=== PATIENT | male | born 1940 | race Caucasian/White ===

== ENCOUNTER 2020-10-31 10:15 | Outpatient (CLI) | payer MEDICARE, SELFPAY ==
[2020-10-31 10:59] LABS: Basophils Percent Auto 0.3 % (0.2-1.2); Eosinophils Absolute Auto 0.2 K/mm3 (0-0.3); Eosinophils Percent Auto 2.1 % (0-4.4); Hematocrit 45.3 % (42.0-52.0); Hemoglobin 14.6 g/dL (14.0-18.0); Immature Granulocyte Absolute 0.02 K/mm3 (0.00-0.031); Immature Granulocyte Percent A 0.3 % (0-0.5); Lymphocytes Absolute Auto 1.26 K/mm3 (0.9-3.2); Lymphocytes Percent Auto 17.4 % (18.3-44.2); Mean Corpuscular HGB Conc 32.2 g/dl (32-36); Mean Corpuscular Hemoglobin 31.7 pg (26-34); Mean Corpuscular Volume 98.3 fl (80-100); Mean Platelet Volume 10.2 fl (7.4-10.4); Monocytes Absolute Auto 0.7 K/mm3 (0.1-0.6); Monocytes Percent Auto 10.2 % (2.6-8.5); Neutrophils Percent Auto 69.7 % (45.5-73.1); Platelet Count Result 198 k/mm3 (150-375); Red Blood Count 4.61 M/mm3 (4.6-6.20); Red Cell Distribution Width 13.5 % (11.5-14.5); White Blood Count 7.2 K/mm3 (4.5-10.0)
[2020-10-31 11:12] LABS: Anion Gap 5 mmol/L (8-16); Blood Urea Nitrogen 19 mg/dL (9-20); Calcium 9.4 mg/dL (8.4-10.2); Carbon Dioxide 33 mmol/L (22-30); Chloride 102 mmol/L (98-107); Estimated Glomerular Filt Rate > 60; Glucose 99 mg/dL (75-110); Potassium 4.7 mmol/L (3.4-5.0); Sodium 140 mmol/L (137-145)
== END 2020-10-31 10:16 | disposition home or self-care (01) ==
PROVIDERS: PCP Family Medicine
DX: E66.9 Obesity, unspecified (principal); E78.5 Hyperlipidemia, unspecified; I10 Essential (primary) hypertension; I25.10 Atherosclerotic heart disease of native coronary artery without angina pectoris; R94.39 Abnormal result of other cardiovascular function study
CPT/HCPCS: 36415; 80048; 85025

== ENCOUNTER → 2020-11-03 06:34 | Outpatient (CLI) | payer MEDICARE, SELFPAY ==
[2020-11-03 19:19] LABS: SARS-CoV-2 RNA PCR Negative
== END ==
PROVIDERS: PCP Family Medicine; Visit Provider Family Medicine
DX: R68.89 Other general symptoms and signs (principal); Z20.822 Contact with and (suspected) exposure to COVID-19
CPT/HCPCS: C9803; U0003; U0005

== ENCOUNTER 2021-05-12 08:09 | Outpatient (CLI) | payer MEDICARE, SELFPAY ==
[2021-05-12 08:45] LABS: Alanine Aminotransferase 22 U/L (4-50); Albumin Level 4.4 g/dL (3.5-5.1); Alkaline Phosphatase 59 U/L (38-126); Anion Gap 7 mmol/L (8-16); Aspartate Amino Transferase 27 U/L (17-59); Bilirubin,Total 1.2 mg/dL (0.2-1.3); Blood Urea Nitrogen 22 mg/dL (9-20); Calcium 8.9 mg/dL (8.4-10.2); Carbon Dioxide 29 mmol/L (22-30); Chloride 101 mmol/L (98-107); Cholesterol 133 mg/dL (0-200); Estimated Glomerular Filt Rate > 60; Glucose 119 mg/dL (65-110); HDL Direct 52 mg/dL; Potassium 4.5 mmol/L (3.4-5.0); Sodium 137 mmol/L (137-145); Triglycerides 97 mg/dL (<150)
[2021-05-12 08:55] LABS: Hemoglobin A1C 5.7 % (<5.7)
[2021-05-12 08:57] LABS: LDL Cholesterol Direct 60 mg/dL
== END 2021-05-12 08:10 | disposition home or self-care (01) ==
LOC: ANHLAB 08:13
PROVIDERS: PCP Family Medicine; Visit Provider Family Medicine
DX: R73.01 Impaired fasting glucose (principal); I11.9 Hypertensive heart disease without heart failure; E78.5 Hyperlipidemia, unspecified
CPT/HCPCS: 36415; 80053; 80061; 83036

== ENCOUNTER 2021-06-18 11:34 | Outpatient (CLI) | payer MEDICARE, SELFPAY ==
[2021-06-18 12:13] LABS: Add Urine Microscopic? YES; Appearance Urine Clear (Clear); Bilirubin Urine Negative (Negative); Blood Urine Negative (Negative); Color Urine Yellow (Yellow); Glucose Urine UA Negative (Negative); Ketones Urine Negative (Negative); Leukocyte Esterase Ur Negative LEU/UL (Negative); Mucus Urine Rare /lpf; Nitrate Urine Negative (Negative); Protein Urine Negative (Negative); RBC Urine 0-2 /hpf (0-2); Specific Grav Ur 1.023 (1.001-1.035); Squamous Epithelial Cell Urine Few /hpf (Few); Urobilinogen Urine Negative mg/dL (<2.0)
== END 2021-06-18 11:35 | disposition home or self-care (01) ==
PROVIDERS: PCP Family Medicine; Visit Provider Family Medicine
DX: N39.0 Urinary tract infection, site not specified (principal)
CPT/HCPCS: 81001

== ENCOUNTER 2021-06-22 09:54 | Outpatient (CLI) | payer MEDICARE, SELFPAY ==
--- NOTE | ~2021-06-22 | XR_ITS ---
EXAMINATION: XR lumbar spine 2-3V DATE: 06/22/2021 10:14 INDICATION: Low back pain TECHNIQUE: Anteroposterior and lateral views of the lumbar spine, and cone-down lateral view of the l umbosacral junction were obtained. COMPARISON: 09/10/2015 FINDINGS: There is unchanged severe loss of intervertebral disc space height at L5-S1. There is mild loss of intervertebral disc space height throughout the remainder of the lumbar spine. No fracture is identified. Bone alignment is normal. The vertebral body heights are maintained. There is calcified atherosclerosis of the aorta and many of the other arteries. The bowel gas pattern is normal. IMPRESSION: 1. Severe lower lumbar spondylosis without acute findings or significant interval change. Reviewed, dictated and finalized at location F. INSTALLER IMPRESSION: 1. Severe lower lumbar spondylosis without acute findings or significant interv al change.
== END 2021-06-22 09:55 | disposition home or self-care (01) ==
LOC: ANHIMG 09:58
PROVIDERS: PCP Family Medicine; Visit Provider Family Medicine
DX: M47.896 Other spondylosis, lumbar region (principal)
CPT/HCPCS: 72100

== ENCOUNTER 2021-06-24 10:02 | Emergency (ER) | payer MEDICARE, SELFPAY ==
[2021-06-24 10:16] VITALS: BP 147/66; PULSE 79; RESP 16; TEMP 36.5; O2SAT 98
--- NOTE | 2021-06-24 10:29 | ED.URI ---
HPI - URI/Sore Throat General Chief Complaint: Upper Respiratory Infection Stated Complaint: RUNNY NOSE/COUGH Source: patient and RN notes reviewed Limitations: no limitations History of Present Illness HPI Narrative: The vaccinated patient, a remote ex-smoker/nondrinker, presents with a nearly 2-week long history of scantly productive cough and congestion. Symptoms are mild, persistent unrelieved with steroid and Flonase given earlier. No fever, wheeze, sore throat; no loss of taste/smell, calf pain/edema, CP, S OB. His last chest x-ray was noncontributory s/p CABG [in 2019]; she had a prior chest ultrasound showing no aneurysm [2018] Related Data Home Medications Medication Instructions Recorded Confirmed aspirin 81 mg tablet,delayed 81 mg PO DAILY 06/08/19 06/09/21 release losartan 100 mg tablet 100 mg PO DAILY 06/08/19 06/09/21 nadolol 20 mg tablet 20 mg PO DAILY 06/08/19 06/09/21 simvastatin 40 mg tablet 40 mg PO DAILY 06/08/19 06/09/21 Allergies Allergy/AdvReac Type Severity Reaction Status Date / Time Penicillins Allergy Mild Rash Verified 06/09/21 08:18 Review of Systems Review of Systems: General/Constitutional: No weight loss,fever Eyes: N0: Redness,discharge Ears/Nose/Throat: No: Epistaxis,ear discharge Respiratory: Denies: Hemoptysis Gastrointestinal: No Vomiting, Bleeding-rectal Skin: No Lumps, eruption Neurologic: No Focal Weakness,Sz Hematologic: Denies: Petechiae/Purpura Psychiatric: No: Suicida ideationl All Other Systems: Reviewed and Negative [facility] Past Medical History Medical History CAD (coronary artery disease) HLD (hyperlipidemia) Hypertension with heart disease IFG (impaired fasting glucose) Surgical History Surgical History S/P CABG (coronary artery bypass graft) Status post arthroscopy of right knee Status post left foot surgery Status post left knee replacement Family History Family History Father Lung cancer Mother AAA (abdominal aortic aneurysm) Father Family history of lung cancer Social History Social History (Reviewed 06/09/21 @ 08:18 by Shanthi Rene Smoking packs per day: 3 Smoking cigarettes per day: 60.0 Years smoked: 25 Smoking pack-years: 75.00 Smoking status: Former smoker Tobacco type: cigarettes Second hand tobacco smoke exposure: No Smoking end date: 06/27/86 Alcohol intake: never Alcohol use details: occasional Substance use: never Substance use type: does not use Gender identity (if verbalized by the patient): Male Comments At time of signature, agree with nursing past medical, surgical, social and family history. There is no relevant family history pertinent to the presenting complaint Exam Narrative: General Appearance: Well appearing, Well nourished EYE: PERRLA, Conjunctiva clear Ears: Auditory canal normal, TM normal Nose: Rhinorrhea, Mucousal erythema Mouth/Throat: MM moist, Uvula midline, Pharyngeal erythema ( Neck: Supple, No adenopathy Respiratory: No respiratory distress, increased AP diameter, mild decreased BS symmetrically especially bases Cardiovascular: RRR, No JVD Musculoskeletal: Non tender, Normal strength Skin: Warm, Dry Neurological: A&O x3, CN II-XII intact Psychiatric: Normal mood, Normal affect Course Vital Signs Vital signs: Vital Signs Temperature 97.7 F 06/24/21 10:16 Pulse Rate 79 06/24/21 10:16 Respiratory Rate 16 06/24/21 10:16 Blood Pressure 147/66 H 06/24/21 10:16 Pulse Oximetry 98 06/24/21 10:16 Temperature 97.7 F 06/24/21 10:16 Pulse Rate 79 06/24/21 10:16 Respiratory Rate 16 06/24/21 10:16 Blood Pressure 147/66 H 06/24/21 10:16 Pulse Oximetry 98 06/24/21 10:16 Discharge Plan Discharge Clinical Impression: Bronchitis Patient Disposition:
[2021-06-25 12:27] LABS: SARS-CoV-2 RNA PCR Positive
== END 2021-06-24 10:42 | disposition home or self-care (01) ==
PROVIDERS: Emergency Provider Emergency Medicine; PCP Family Medicine
DX: U07.1 COVID-19 (principal); I25.10 Atherosclerotic heart disease of native coronary artery without angina pectoris; E78.5 Hyperlipidemia, unspecified; Z95.1 Presence of aortocoronary bypass graft; Z96.652 Presence of left artificial knee joint; Z87.891 Personal history of nicotine dependence
CPT/HCPCS: 99213; C9803; G0463; U0003; U0005

== ENCOUNTER 2021-07-13 09:44 | Outpatient (CLI) | payer MEDICARE, SELFPAY ==
--- NOTE | ~2021-07-13 | XR_ITS ---
EXAMINATION: XR chest 2V EXAM DATE: 07/13/2021 09:59 INDICATION: R05.9 - Cough, unspecified, H/O triple bypass. TECHNIQUE: Frontal and lateral projections of the chest obtained and reviewed. Comparison is made to prior examination from 09/05/2018. FINDINGS: Sternotomy wires are present without findings to suggest sternal dehiscence. The lungs are clear. There are no pleural effusions. Cardiac silhouette is prominent but magnified on this AP te chnique. There is no pneumothorax suspected. Patient has diffuse idiopathic skeletal hyperostosis (DISH). There is no significant interval change. IMPRESSION: No acute cardiopulmonary findings. Reviewed, dictated and finalized at location G. HOIST OPERATOR
== END 2021-07-13 09:45 | disposition home or self-care (01) ==
LOC: ANHIMG 09:46
PROVIDERS: PCP Family Medicine; Visit Provider Nurse Practitioner Family
DX: R05.9 Cough, unspecified (principal)
CPT/HCPCS: 71046

== ENCOUNTER 2021-11-12 10:21 | Outpatient (CLI) | payer MEDICARE, SELFPAY ==
[2021-11-12 10:51] LABS: Hematocrit 45.2 % (42.0-52.0); Hemoglobin 14.4 g/dL (14.0-18.0); Mean Corpuscular HGB Conc 31.9 g/dl (32-36); Mean Corpuscular Hemoglobin 31.8 pg (26-34); Mean Corpuscular Volume 99.8 fl (80-100); Mean Platelet Volume 9.8 fl (7.4-10.4); Platelet Count Result 195 k/mm3 (150-375); Red Blood Count 4.53 M/mm3 (4.6-6.20); Red Cell Distribution Width 13.5 % (11.5-14.5); White Blood Count 6.8 K/mm3 (4.5-10.0)
[2021-11-12 10:55] LABS: Appearance Urine Clear (Clear); Bilirubin Urine Negative (Negative); Blood Urine Negative (Negative); Color Urine Yellow (Yellow); Glucose Urine UA Negative (Negative); Ketones Urine Negative (Negative); Leukocyte Esterase Ur Trace LEU/UL (NEGATIVE); Nitrate Urine Negative (Negative); Protein Urine 1+ mg/dL (Negative); Specific Grav Ur 1.025 (1.001-1.035); Urobilinogen Urine 0.2 mg/dL (<2.0)
[2021-11-12 11:01] LABS: Add Urine Microscopic? YES
[2021-11-12 11:02] LABS: RBC Urine 0-2 /hpf (0-2)
[2021-11-12 11:03] LABS: WBC Urine 0-3 /hpf (0-3)
[2021-11-12 11:18] LABS: Alanine Aminotransferase 17 U/L (6-50); Albumin Level 4.4 g/dL (3.5-5.1); Alkaline Phosphatase 80 U/L (38-126); Anion Gap 6 mmol/L (8-16); Aspartate Amino Transferase 26 U/L (17-59); Bilirubin,Total 1.4 mg/dL (0.2-1.3); Blood Urea Nitrogen 20 mg/dL (9-20); Calcium 8.8 mg/dL (8.4-10.2); Carbon Dioxide 28 mmol/L (22-30); Chloride 104 mmol/L (98-107); Cholesterol 128 mg/dL (0-200); Estimated Glomerular Filt Rate 58; Glucose 104 mg/dL (65-110); HDL Direct 45 mg/dL; Potassium 5.3 mmol/L (3.4-5.0); Sodium 138 mmol/L (137-145); Triglycerides 92 mg/dL (<150)
[2021-11-12 11:20] LABS: LDL Cholesterol Direct 53 mg/dL
[2021-11-12 11:26] LABS: Hemoglobin A1C 5.7 % (<5.7)
== END 2021-11-12 10:22 | disposition home or self-care (01) ==
PROVIDERS: PCP Family Medicine; Visit Provider Family Medicine
DX: E11.9 Type 2 diabetes mellitus without complications (principal); E78.5 Hyperlipidemia, unspecified; Z00.00 Encounter for general adult medical examination without abnormal findings
CPT/HCPCS: 36415; 80053; 80061; 81001; 83036; 84443; 85027

== ENCOUNTER 2021-12-14 10:27 | Outpatient (CLI) | payer MEDICARE, SELFPAY ==
[2021-12-14 11:24] LABS: Alanine Aminotransferase 20 U/L (6-50); Albumin Level 4.7 g/dL (3.5-5.1); Alkaline Phosphatase 76 U/L (38-126); Anion Gap 3 mmol/L (8-16); Aspartate Amino Transferase 28 U/L (17-59); Bilirubin,Total 1.9 mg/dL (0.2-1.3); Blood Urea Nitrogen 22 mg/dL (9-20); Calcium 8.7 mg/dL (8.4-10.2); Carbon Dioxide 29 mmol/L (22-30); Chloride 103 mmol/L (98-107); Estimated Glomerular Filt Rate > 60; Glucose 114 mg/dL (65-110); Sodium 135 mmol/L (137-145)
== END 2021-12-14 10:28 | disposition home or self-care (01) ==
LOC: ANHLAB 10:30
PROVIDERS: PCP Family Medicine; Visit Provider Family Medicine
DX: E87.5 Hyperkalemia (principal)
CPT/HCPCS: 36415; 80053

== ENCOUNTER 2022-06-01 10:09 | Outpatient (CLI) | payer MEDICARE, SELFPAY ==
[2022-06-01 17:12] LABS: Alanine Aminotransferase 23 U/L (6-50); Albumin Level 4.2 g/dL (3.5-5.1); Alkaline Phosphatase 80 U/L (38-126); Anion Gap 6 mmol/L (8-16); Bilirubin,Total 1.3 mg/dL (0.2-1.3); Blood Urea Nitrogen 21 mg/dL (9-20); Calcium 8.4 mg/dL (8.4-10.2); Carbon Dioxide 30 mmol/L (22-30); Chloride 105 mmol/L (98-107); Estimated Glomerular Filt Rate > 60; Glucose 103 mg/dL (65-110); Potassium 4.8 mmol/L (3.4-5.0); Sodium 141 mmol/L (137-145)
[2022-06-01 17:42] LABS: Aspartate Amino Transferase 27 U/L (17-59)
== END 2022-06-01 10:10 | disposition home or self-care (01) ==
PROVIDERS: Physician Assistant; PCP Family Medicine; Visit Provider Family Medicine
DX: R73.01 Impaired fasting glucose (principal); I11.9 Hypertensive heart disease without heart failure
CPT/HCPCS: 36415; 80053; 83036

== ENCOUNTER 2022-06-16 09:06 | Outpatient (CLI) | payer MEDICARE, SELFPAY ==
--- NOTE | ~2022-06-16 | XR_ITS ---
AP view of the pelvis and AP and lateral views of the left hip Clinical history: Pain Findings: No acute fracture or dislocation is seen. Osseous alignment is anatomic. Bilateral hip and SI joint spaces are preserved. Soft tissues are unremarkable. Impression: No significant abnormality is seen. Reviewed, dictated and finalized at [facility]. ATTENDANT Impression: No significant abnormality is seen.
== END 2022-06-16 09:07 | disposition home or self-care (01) ==
PROVIDERS: PCP Family Medicine; Visit Provider Physician Assistant
DX: M25.552 Pain in left hip (principal)
CPT/HCPCS: 73502

== ENCOUNTER 2022-08-23 09:47 | Outpatient (CLI) | payer MEDICARE, SELFPAY ==
--- NOTE | 2022-08-23 09:56 | ECG_ITS ---
Measurements Intervals [place] Rate: 69 P: 45 FL: 192 QRS: -51 QRSD: 124 T: 31 QT: 428 QTc: 459 Interpretive Statements SINUS RHYTHM LEFT AXIS DEVIATION ANTEROSEPTAL MYOCARDIAL INFARCTION, OF INDETERMINATE AGE ABNORMAL ECG NO PREVIOUS ECG AVAILABLE FOR COMPARISON Electronically Signed On 08-23-2022 14:37:01 MICROCOMPUTER SUPPORT SPECIALIST by Ulises Russell M.D.
== END 2022-08-23 09:48 | disposition home or self-care (01) ==
PROVIDERS: PCP Family Medicine; Visit Provider Urology
DX: Z01.810 Encounter for preprocedural cardiovascular examination (principal); I11.9 Hypertensive heart disease without heart failure; I25.2 Old myocardial infarction; R94.31 Abnormal electrocardiogram [ECG] [EKG]
CPT/HCPCS: 93005

== ENCOUNTER 2022-08-26 00:25 | Day surgery (SDC) | payer MEDICARE, SELFPAY ==
--- NOTE | 2022-08-20 15:08 | PC.NURSE ---
Report to the Outpatient Waiting Room, entrance under the green pavilion located off [facility], at time __0830 on date _08/26/22 . Planned Procedure Time: ____1030____. Time changes happen often and if your time is changed the preop area will call you the afternoon before. - You and your visitor will be asked to self-screen and do not enter if you have any COVID symptoms. - Only one visitor is requested with a max of two and NO children visitors are allowed at this time. - The patient visitor may be requested to leave or wait in car when not with patient due to distancing restrictions. - A mask is optional within the hospital at this time. Patients may have clear liquids (water, carbonated beverages, clear teas, apple juice) until 3 hours prior to surgery with a maximum of 20 ounces. - No food from midnight until time of surgery - Infants may have breast milk until 4 hours before surgery, formula 6 hours prior to surgery. - Children will be allowed to drink immediately following surgery. If applicable, please bring a bottle or sippy cup to assist with drinking. Juice, water, soda, and popsicles are readily available. For infants on formula, please bring formula the day of surgery. Pacifiers are allowed. Take the following medications with a SIP of water the morning of surgery: ____NADOLOL DO NOT STOP ANY OF YOUR OTHER PRESCRIPTION MEDICATIONS PRIOR TO SURGERY ?EXCEPT THE FOLLOWING Medications to discontinue per physician __PT STATES HOLD ASPIRIN PER DR BALDERAS. LAST DOSE 08/19/22 Please no make-up, nail slovak, hairspray, perfume, deodorant, or body powder the day of surgery. No jewelry (including any body piercings) or valuables the day of surgery, leave them at home. Please take a shower or bath the night before, or the morning of, surgery with an antibacterial soap. Wear comfortable, loose fitting clothing. Children are encouraged to wear pajamas. - Jewelry must be removed prior to entering the operating room. Rings and piercings that are not removed may be cut off. - The hospital will not accept responsibility for valuables. - Please leave all valuables, including medications, at home the day of surgery. If you are going home after surgery, a licensed guard driver must drive you home. - NO public transportation without another adult if you receive anesthesia. - We recommend that an adult stay with you for 24 hours following discharge. - We also recommend that you do not drive, make important decision, drink alcoholic beverages, or take any drugs that were not prescribed by your health care provider for at least 24 hours after your discharge time. Follow any additional instructions given to you from your surgeon. If you or anyone in your household have experienced Covid symptoms in the past week, please notify your surgeon or the nurse liaison at the phone number below for possible testing. Telephone instructions given to ___PATIENT and asked if any additional questions and then verbalized understanding. Patient advised to call surgeon office or pre surgery nurse liaison [phone] if any additional questions.
[2022-08-20 15:25] VITALS: BMI 33.0
--- NOTE | 2022-08-23 07:26 | PM.HPGS ---
History of Present Illness History of Present Illness Consent: Risks, benefits, and alternatives have been discussed and questions answered. Patient agrees to proceed with procedure. Chief complaint: phimosis Narrative: Gentry Lennon Jr. is a 82 year old male who recently presented with dysuria. Examination revealed severe some phimosis and his dysuria appears to be related to that. After discussion of options he has elected to proceed with circumcision. He is aware the risk including, but not limited to, postoperative penile hematoma. Review of Systems Cardiovascular: Cardiovascular: Denies chest pain, Denies lightheadedness, Denies palpitations and Denies dyspnea Respiratory: Respiratory: Denies dyspnea Gastrointestinal: Gastrointestinal: Denies diarrhea, Denies nausea and Denies vomiting Genitourinary: Genitourinary: Denies hematuria and Denies dysuria Endocrine: Endocrine: Denies palpitations [facility] Past Medical History Medical History (Updated 07/02/22 @ 09:25 by Sherice Hernandez PA-C) CAD (coronary artery disease) History of COVID-19 HLD (hyperlipidemia) Hypertension with heart disease IFG (impaired fasting glucose) Surgical History Surgical History S/P CABG (coronary artery bypass graft) Status post arthroscopy of right knee Status post left foot surgery Status post left knee replacement Family History Family History Father Lung cancer Mother AAA (abdominal aortic aneurysm) Father Family history of lung cancer Social History Social History Smoking packs per day: 3 Smoking cigarettes per day: 60.0 Years smoked: 25 Smoking pack-years: 75.00 Smoking status: Former smoker Tobacco type: cigarettes Second hand tobacco smoke exposure: No Smoking end date: 06/27/86 Alcohol intake: never Alcohol use details: occasional Substance use: never Substance use type: does not use Living arrangements: with family Occupation/Education: retired Gender identity (if verbalized by the patient): Male Spiritual care concerns: No Meds Home Medications and Allergies Home Medications Medication Instructions Recorded Confirmed Type aspirin 81 mg tablet,delayed 81 mg PO DAILY 06/08/19 08/20/22 History release losartan 100 mg tablet 100 mg PO DAILY 06/08/19 08/20/22 History nadolol 20 mg tablet 20 mg PO DAILY 06/08/19 08/20/22 History simvastatin 40 mg tablet (Zocor) 40 mg PO DAILY 06/08/19 08/20/22 History Allergies Allergy/AdvReac Type Severity Reaction Status Date / Time Penicillins Allergy Mild Rash Verified 08/20/22 14:59 Exam Const: General: no acute distress Resp: Effort & Inspection: normal respiratory effort GI: Inspection: non-distended GI Palp: No abdominal tenderness and No Guarding due to palpation present (GI) Auscultation: normal bowel sounds : Penis: Yes phimosis Assessment and Plan Assessment and plan (1) Phimosis of penis: Code(s): N47.1 - Phimosis Status: Acute Assessment and Plan: Circumcision
[2022-08-26] VITALS (8 sets, daily range): BP systolic 151–187; BP diastolic 53–84; PULSE 59–67; RESP 12–20; TEMP 36.1; O2SAT 97–100
--- NOTE | 2022-08-26 06:43 | WPDHPUPDATE1 ---
History and Physical Update Update Date/Time: 08/26/22 06:43 History and Physical has been reviewed, including an updated exam of the patient. There are NO changes in the patient's condition. Risks, benefits, and alternatives have been discussed and questions answered. Patient agrees to proceed with procedure.
[2022-08-26] MEDS: LACTATED RINGERS 1,000 ML 30 ML IV CONT (08:55)
--- NOTE | 2022-08-26 09:41 | WPDANESEPPF ---
Anes - Initial Pre Proc Eval Procedure: Operation Date: 08/26/22 10:30 Proposed Procedures p Circumcision - Sinan Rush MD Date/Time: 08/26/22 09:41 Surgeon: Sinan Rush MD Pre Op Diagnosis: phimosis Patient Data Age: 82 Gender: M Height: 1.85 m Weight: 111.7 kg Last Vital Signs Temp 96.9 F L 08/26/22 08:30 Pulse 65 08/26/22 08:30 Resp 20 08/26/22 08:30 BP 160/81 H 08/26/22 08:30 Pulse Ox 98 08/26/22 08:30 O2 Del Method Room Air 08/26/22 08:30 Allergies Allergy/AdvReac Type Severity Reaction Status Date / Time Penicillins Allergy Mild Rash Verified 08/26/22 08:48 Home Medications Medication Instructions Recorded Confirmed Type aspirin 81 mg tablet,delayed 81 mg PO DAILY 06/08/19 08/26/22 History release losartan 100 mg tablet 100 mg PO DAILY 06/08/19 08/26/22 History nadolol 20 mg tablet 20 mg PO DAILY 06/08/19 08/26/22 History simvastatin 40 mg tablet (Zocor) 40 mg PO DAILY 06/08/19 08/26/22 History Patient hx anesthesia problems: none Family hx anesthesia problems: none Results Review: All pre-operative results and documents have been reviewed as part of the pre-operative evaluation. [facility] Past Medical History Medical History (Updated 07/02/22 @ 09:25 by Sherice Hernandez PA-C) CAD (coronary artery disease) History of COVID-19 HLD (hyperlipidemia) Hypertension with heart disease IFG (impaired fasting glucose) Surgical History Surgical History S/P CABG (coronary artery bypass graft) Status post arthroscopy of right knee Status post left foot surgery Status post left knee replacement Family History Family History Father Lung cancer Mother AAA (abdominal aortic aneurysm) Father Family history of lung cancer Social History Social History Smoking packs per day: 3 Smoking cigarettes per day: 60.0 Years smoked: 25 Smoking pack-years: 75.00 Smoking status: Former smoker Tobacco type: cigarettes Second hand tobacco smoke exposure: No Smoking end date: 06/27/86 Alcohol intake: never Alcohol use details: occasional Substance use: never Substance use type: does not use Living arrangements: with family Occupation/Education: retired Gender identity (if verbalized by the patient): Male Spiritual care concerns: No Anes - Eval Final PreProcedure Day of Procedure 08/26/22 09:41 Patient weight: obese Heart: regular rate and rhythm Lungs: clear to auscultation Airway: Mallampati scale class II Neurological: alert and oriented Last oral intake: >/= 8 hours ASA classification: III Emergent: no Anesthetic plan: proceed Anesthesia type and monitoring: general LMA and standard monitoring Results Review: All pre-operative results and documents have been reviewed as part of the pre-operative evaluation. Informed Consent: The patient's anesthetic plan and its attendant risks and benefits were discussed with the patient/family/POA. Questions were solicited and answers provided to the satisfaction of the patient/family/POA.
[2022-08-26] MEDS: ceFAZolin 2 GM/D5W 50 ML 2 GM/50 ML BAG IVPB (10:11)
[2022-08-26] MEDS: BUPivacaine HCL 0.5% PF 30 ML VIAL INFILTRATE (10:29)
--- NOTE | 2022-08-26 10:55 | W.PM.PROC2 ---
Procedure Note - Detailed Date of Procedure 08/26/22 Pre-op Diagnosis Phimosis Post-op Diagnosis Same Procedure Performed Circumcision Surgeon Sinan Rush MD Anesthesia General Description of Procedure The patient is brought to the operative suite areas prepped and draped in a routine sterile fashion while in a supine position. The lines of circumcision are outlined using a sterile marking pen. 2 circumferential circumcising incisions were made and carried down to Colle's fascia. The penile foreskin is circumferentially excised. Hemostasis is obtained with electric cautery. The edges of the penile skin reapproximated using a combination of running and interrupted 4-0 chromic. A penile block is administered at the base of the penis with 0.25% bupivacaine. The patient was taken to the recovery room in good condition. EBL was approximately 10cc. Estimated Blood Loss 10 Drains No Packing No Pathology Yes
--- NOTE | 2022-08-26 11:25 | SUR.PHASEI ---
1125: Simple mask removed.
== END 2022-08-26 12:43 | disposition home or self-care (01) ==
PROVIDERS: PCP Family Medicine; Visit Provider Urology
PROC: (CPT 54161; principal; 2022-08-26 10:30)
DX: N47.1 Phimosis (principal); I11.9 Hypertensive heart disease without heart failure; E78.5 Hyperlipidemia, unspecified; I25.10 Atherosclerotic heart disease of native coronary artery without angina pectoris; Z79.82 Long term (current) use of aspirin; Z95.1 Presence of aortocoronary bypass graft; Z87.891 Personal history of nicotine dependence; E66.9 Obesity, unspecified; Z68.32 Body mass index [BMI] 32.0-32.9, adult
CPT/HCPCS: 54161; 88304; A9270; J0690; J1100; J2405; J2704; J3010; J7120

== ENCOUNTER 2022-10-05 14:39 | Emergency (ER) | payer MEDICARE, SELFPAY ==
--- NOTE | 2022-10-05 14:42 | ED.URI ---
HPI - URI/Sore Throat General Chief Complaint: Upper Respiratory Infection Stated Complaint: cough Time Seen by Provider: 10/05/22 15:09 Source: patient and RN notes reviewed Mode of arrival: ambulatory Limitations: no limitations History of Present Illness HPI Narrative: 82-year-old male presents concern for cough for 4 days sweats last night. He reports mild nasal congestion and rhinorrhea. He reports he has been taking cough medicine with not much relief. MD elicited complaint: cough Related Data Home Medications Medication Instructions Recorded Confirmed aspirin 81 mg tablet,delayed 81 mg PO DAILY 06/08/19 10/05/22 release nadolol 20 mg tablet 20 mg PO DAILY 06/08/19 10/05/22 simvastatin 40 mg tablet (Zocor) 40 mg PO DAILY 06/08/19 10/05/22 losartan 50 mg tablet 50 mg PO DAILY 10/05/22 10/05/22 Allergies Allergy/AdvReac Type Severity Reaction Status Date / Time Penicillins Allergy Mild Rash Verified 10/05/22 14:57 Review of Systems Review of Systems: CONSTITUTIONAL: Reports malaise, sweats. Denies chills or fever. EYES: Denies visual changes, redness, or discharge. ENT: Reports rhinorrhea, congestion. Denies sinus pain, otalgia and sore throat. CARDIOVASCULAR: Denies chest pain, palpitations, or edema. RESPIRATORY: Reports cough. Denies dyspnea. GASTROINTESTINAL: Denies abdominal pain, nausea, vomiting, diarrhea SKIN: Denies rash or itching. MUSCULOSKELETAL: Denies myalgia. NEUROLOGIC: Denies headache. All systems reviewed & are unremarkable except as noted in HPI and below PMFSH Past Medical History Medical History (Updated 10/05/22 @ 15:17 by Paige Donnelly NP) CAD (coronary artery disease) History of COVID-19 HLD (hyperlipidemia) Hypertension with heart disease IFG (impaired fasting glucose) Surgical History Surgical History S/P CABG (coronary artery bypass graft) Status post arthroscopy of right knee Status post left foot surgery Status post left knee replacement Family History Family History Father Lung cancer Mother AAA (abdominal aortic aneurysm) Father Family history of lung cancer Social History Social History (Reviewed 06/09/22 @ 08:32 by Ann Ying Smoking packs per day: 3 Smoking cigarettes per day: 60.0 Years smoked: 25 Smoking pack-years: 75.00 Smoking status: Former smoker Tobacco type: cigarettes Second hand tobacco smoke exposure: No Smoking end date: 06/27/86 Alcohol intake: never Alcohol use details: occasional Substance use: never Substance use type: does not use Living arrangements: with family Occupation/Education: retired Gender identity (if verbalized by the patient): Male Spiritual care concerns: No Comments At time of signature, agree with nursing past medical, surgical, social and family history. There is no relevant family history pertinent to the presenting complaint Exam Narrative: GENERAL: Well-appearing, well-nourished, and in no acute distress. HEAD: Normocephalic EYES: PERRLA, conjunctivae clear ENT: Nares clear, turbinates edematous and erythematous, clear discharge. Mucous membranes moist. TM pearly nichols with dull light reflex bilaterally; no tragal tenderness. Oropharynx not erythematous without lesions. Tonsils not enlarged and without exudate, no drooling, no hoarseness, no trismus, uvula midline. NECK: Supple. No lymphadenopathy CHEST: Clear to auscultation, breath sounds equal. No wheezing, rhonchi, rales, or stridor. No respiratory distress, speaks in full sentences. Cough noted HEART: Regular rate and rhythm. No murmur heard. SKIN: Warm, dry, no rash. NEURO: Alert and oriented x3. PSYCH: Normal mood and affect Course Course Emergency Course: Patient is aware of diagnosis, understands and agrees to treatment plan. Anticipatory guidance given. Patient agrees to follow-up as directe
[2022-10-05 14:53] VITALS: BP 143/75; PULSE 73; RESP 16; TEMP 36.7; O2SAT 97
== END 2022-10-05 15:22 | disposition home or self-care (01) ==
PROVIDERS: Emergency Provider Nurse Practitioner; PCP Family Medicine
DX: J06.9 Acute upper respiratory infection, unspecified (principal); Z87.891 Personal history of nicotine dependence; I25.10 Atherosclerotic heart disease of native coronary artery without angina pectoris; E78.5 Hyperlipidemia, unspecified; I11.9 Hypertensive heart disease without heart failure; R73.01 Impaired fasting glucose; Z96.652 Presence of left artificial knee joint; Z95.5 Presence of coronary angioplasty implant and graft; Z79.82 Long term (current) use of aspirin
CPT/HCPCS: 99213; G0463

== ENCOUNTER 2022-11-30 09:42 | Outpatient (CLI) | payer MEDICARE, SELFPAY ==
[2022-11-30 11:13] LABS: Hematocrit 45.3 % (42.0-52.0); Hemoglobin 14.7 g/dL (14.0-18.0); Mean Corpuscular HGB Conc 32.5 g/dl (32-36); Mean Corpuscular Hemoglobin 32.4 pg (26-34); Mean Corpuscular Volume 99.8 fl (80-100); Mean Platelet Volume 11.8 fl (7.4-10.4); Platelet Count Result 174 k/mm3 (150-375); Red Blood Count 4.54 M/mm3 (4.6-6.20); Red Cell Distribution Width 13.4 % (11.5-14.5); White Blood Count 6.1 K/mm3 (4.5-10.0)
[2022-11-30 11:18] LABS: Appearance Urine Clear (Clear); Bacteria Urine None Seen /hpf; Bilirubin Urine Negative (Negative); Blood Urine Negative (Negative); Color Urine Yellow (Yellow); Glucose Urine UA Negative (Negative); Ketones Urine Negative (Negative); Leukocyte Esterase Ur Negative LEU/UL (NEGATIVE); Nitrate Urine Negative (Negative); Non Pathogenic Casts 0-2; Protein Urine Trace mg/dL (Negative); RBC Urine 0-2 /hpf (0-2); Specific Grav Ur 1.024 (1.001-1.035); Squamous Epithelial Cell Urine None seen /hpf (Few); Urobilinogen Urine 0.2 mg/dL (<2.0); WBC Urine 0-5 /hpf (0-3)
[2022-11-30 11:29] LABS: Add Urine Microscopic? YES
[2022-11-30 23:18] LABS: Hemoglobin A1C 5.9 % (<5.7)
== END 2022-11-30 09:43 | disposition home or self-care (01) ==
PROVIDERS: PCP Family Medicine; Visit Provider Family Medicine
DX: I11.9 Hypertensive heart disease without heart failure (principal); I25.10 Atherosclerotic heart disease of native coronary artery without angina pectoris; R73.01 Impaired fasting glucose
CPT/HCPCS: 36415; 81001; 83036; 85027

== ENCOUNTER 2023-05-20 08:38 | Outpatient (CLI) | payer MEDICARE, SELFPAY ==
[2023-05-20 09:33] LABS: Alanine Aminotransferase 20 U/L (6-50); Albumin Level 4.5 g/dL (3.5-5.1); Alkaline Phosphatase 60 U/L (38-126); Anion Gap 9 mmol/L (8-16); Aspartate Amino Transferase 28 U/L (17-59); Bilirubin,Total 1.5 mg/dL (0.2-1.3); Blood Urea Nitrogen 29 mg/dL (9-20); Calcium 8.9 mg/dL (8.4-10.2); Carbon Dioxide 25 mmol/L (22-30); Chloride 105 mmol/L (98-107); Cholesterol 147 mg/dL (0-200); Estimated Glomerular Filt Rate > 60; Glucose 128 mg/dL (65-110); HDL Direct 50 mg/dL; Potassium 4.7 mmol/L (3.4-5.0); Sodium 139 mmol/L (137-145); Triglycerides 111 mg/dL (<150)
[2023-05-20 09:43] LABS: LDL Cholesterol Direct 68 mg/dL
[2023-05-20 11:05] LABS: Hemoglobin A1C 5.6 % (<5.7)
== END 2023-05-20 08:39 | disposition home or self-care (01) ==
PROVIDERS: PCP Family Medicine; Visit Provider Family Medicine
DX: R73.01 Impaired fasting glucose (principal); E78.5 Hyperlipidemia, unspecified; I11.9 Hypertensive heart disease without heart failure
CPT/HCPCS: 36415; 80053; 80061; 83036

== ENCOUNTER 2023-07-29 09:10 | Emergency (ER) | payer MEDICARE, SELFPAY ==
[2023-07-29 09:24] VITALS: BP 144/79; PULSE 82; RESP 16; TEMP 36.6; O2SAT 96
--- NOTE | 2023-07-29 09:32 | ED.URI ---
HPI - URI/Sore Throat General Chief Complaint: Upper Respiratory Infection Stated Complaint: COUGH/TIRED Time Seen by Provider: 07/29/23 09:26 Source: patient and RN notes reviewed Mode of arrival: ambulatory Limitations: no limitations History of Present Illness HPI Narrative: Patient presents today complaining of a 2 day history of fatigue, congestion, cough, and sweats. Denies any additional symptoms to include rhinorrhea, sore throat, sweats, nausea, vomiting, diarrhea, shortness of breath or chest pain. He has been taking cough medicine and ibuprofen at home with some relief. Home COVID tests have been negative. Related Data Home Medications Medication Instructions Recorded Confirmed aspirin 81 mg tablet,delayed 81 mg PO DAILY 06/08/19 07/29/23 release nadolol 20 mg tablet 20 mg PO DAILY 06/08/19 07/29/23 simvastatin 40 mg tablet (Zocor) 40 mg PO DAILY 06/08/19 07/29/23 losartan 50 mg tablet 50 mg PO DAILY 10/05/22 07/29/23 Allergies Allergy/AdvReac Type Severity Reaction Status Date / Time Penicillins Allergy Mild Rash Verified 07/29/23 09:19 Review of Systems Review of Systems: CONSTITUTIONAL: Denies body aches, fever, chills.+ sweats, fatigue EYES: Denies visual changes, redness, or discharge. ENT: Denies rhinorrhea, sore throat, or otalgia. +congestion CARDIOVASCULAR: Denies chest pain, palpitations, or edema. RESPIRATORY: Denies dyspnea.+ cough GASTROINTESTINAL: Denies abdominal pain, nausea, vomiting, or diarrhea. GENITOURINARY: Denies dysuria or hematuria. SKIN: Denies rash, itching, or wounds. MUSCULOSKELETAL: Denies back pain, joint pain, or myalgia. NEUROLOGIC: Denies headache, numbness, tingling, or weakness. PSYCH: Denies depression or anxiety. [facility] Past Medical History Medical History CAD (coronary artery disease) History of COVID-19 HLD (hyperlipidemia) Hypertension with heart disease IFG (impaired fasting glucose) Surgical History Surgical History S/P CABG (coronary artery bypass graft) Status post arthroscopy of right knee Status post left foot surgery Status post left knee replacement Family History Family History Father Lung cancer Mother AAA (abdominal aortic aneurysm) Father Family history of lung cancer Social History Social History Smoking packs per day: 3 Smoking cigarettes per day: 60.0 Years smoked: 25 Smoking pack-years: 75.00 Smoking status: Former smoker Tobacco type: cigarettes Second hand tobacco smoke exposure: No Smoking end date: 06/27/86 Alcohol intake: never Alcohol use details: occasional Substance use: never Substance use type: does not use Living arrangements: with family Occupation/Education: retired Gender identity (if verbalized by the patient): Male Spiritual care concerns: No Comments At time of signature, I have reviewed and agree with nursing past medical, surgical, social and family history unless otherwise noted. Please see nursing chart for further information. There is no relevant family history pertinent to the presenting complaint Exam Narrative: GENERAL: Well-appearing, well-nourished, and in no acute distress. HEAD: Normocephalic, atraumatic. EYES: EOMI. No redness or drainage. Conjunctivae normal. ENT: Mucous membranes pink and moist. Nares clear. No rhinorrhea. TMs normal bilaterally. Throat normal. Uvula midline. NECK: Normal AROM. Supple. No lymphadenopathy. CHEST: No respiratory distress. Clear to auscultation. HEART: Regular rate and rhythm. No murmur appreciated. EXTREMITIES: Normal range of motion. No edema. SKIN: Warm, dry, no rash. Capillary refill normal. Normal skin turgor. NEURO: No focal deficits. Alert and oriented x3. Gait st
== END 2023-07-29 09:46 | disposition home or self-care (01) ==
PROVIDERS: Emergency Provider Nurse Practitioner; PCP Family Medicine
DX: B34.9 Viral infection, unspecified (principal); Z87.891 Personal history of nicotine dependence; I25.10 Atherosclerotic heart disease of native coronary artery without angina pectoris; E78.5 Hyperlipidemia, unspecified; I11.9 Hypertensive heart disease without heart failure; Z95.1 Presence of aortocoronary bypass graft; Z79.82 Long term (current) use of aspirin
CPT/HCPCS: 87804; 99213; G0463

== ENCOUNTER 2023-11-24 10:19 | Outpatient (CLI) | payer MEDICARE, SELFPAY ==
[2023-11-24 10:53] LABS: Hematocrit 44.2 % (42.0-52.0); Hemoglobin 14.2 g/dL (14.0-18.0); Mean Corpuscular HGB Conc 32.1 g/dl (32-36); Mean Corpuscular Hemoglobin 31.5 pg (26-34); Mean Platelet Volume 10.2 fl (7.4-10.4); Platelet Count Result 182 k/mm3 (150-375); Red Blood Count 4.51 M/mm3 (4.6-6.20); White Blood Count 6.2 K/mm3 (4.5-10.0)
[2023-11-24 10:54] LABS: Appearance Urine Clear (Clear); Bilirubin Urine Negative (Negative); Blood Urine Negative (Negative); Color Urine Yellow (Yellow); Glucose Urine UA Negative (Negative); Ketones Urine Negative (Negative); Leukocyte Esterase Ur Negative LEU/UL (Negative); Nitrate Urine Negative (Negative); Protein Urine Negative (Negative); Specific Grav Ur 1.008 (1.001-1.035); Urobilinogen Urine 0.2 mg/dL (<2.0)
[2023-11-24 11:04] LABS: Add Urine Microscopic? NO
[2023-11-24 11:05] LABS: Alanine Aminotransferase 20 U/L (6-50); Albumin Level 4.4 g/dL (3.5-5.1); Alkaline Phosphatase 59 U/L (38-126); Anion Gap 5 mmol/L (4-12); Aspartate Amino Transferase 29 U/L (17-59); Bilirubin,Total 1.7 mg/dL (0.2-1.3); Blood Urea Nitrogen 27 mg/dL (9-20); Calcium 8.6 mg/dL (8.4-10.2); Carbon Dioxide 26 mmol/L (22-30); Chloride 105 mmol/L (98-107); Cholesterol 137 mg/dL (0-200); Estimated Glomerular Filt Rate > 60; Glucose 99 mg/dL (65-110); HDL Direct 53 mg/dL; Sodium 136 mmol/L (137-145); Triglycerides 94 mg/dL (<150)
[2023-11-24 11:14] LABS: LDL Cholesterol Direct 68 mg/dL
[2023-11-24 12:58] LABS: Hemoglobin A1C 5.7 % (<5.7)
== END 2023-11-24 10:20 | disposition home or self-care (01) ==
LOC: ANHLAB 10:24
PROVIDERS: PCP Family Medicine; Visit Provider Family Medicine
DX: E78.5 Hyperlipidemia, unspecified (principal); I11.9 Hypertensive heart disease without heart failure; I25.10 Atherosclerotic heart disease of native coronary artery without angina pectoris; R73.01 Impaired fasting glucose
CPT/HCPCS: 36415; 80053; 80061; 81003; 83036; 84443; 85027

== ENCOUNTER 2024-06-08 09:28 | Outpatient (CLI) | payer MEDICARE, SELFPAY ==
[2024-06-08 10:11] LABS: Alanine Aminotransferase 23 U/L (6-50); Albumin Level 4.5 g/dL (3.5-5.1); Alkaline Phosphatase 63 U/L (38-126); Anion Gap 6 mmol/L (4-12); Aspartate Amino Transferase 33 U/L (17-59); Bilirubin,Total 1.3 mg/dL (0.2-1.3); Blood Urea Nitrogen 19 mg/dL (9-20); Calcium 8.9 mg/dL (8.4-10.2); Carbon Dioxide 29 mmol/L (22-30); Chloride 105 mmol/L (98-107); Estimated Glomerular Filt Rate > 60; Glucose 103 mg/dL (65-110); Potassium 5.1 mmol/L (3.4-5.0); Sodium 140 mmol/L (137-145)
[2024-06-08 11:01] LABS: Hemoglobin A1C 5.9 % (<5.7)
--- OUTSIDE RECORDS SUMMARY | 2024-06-08 12:20 | XMS_ITS | Continuity of Care Document ---
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) - 04/19/24 Discharge Disposition: Home or Self Care Attending Physician: Mireille James MD Referring Physician: Mireille James MD Allergies, Adverse Reactions, Alerts Substance Criticality Severity Reaction Reaction Severity Status penicillins Active Assessment and Plan Future Appointments Appointment Date:04/30/2024 02:45:00 PM Scheduled Provider: Location:[facility] PET SCAN Appointment Type:CO PET MYOCARDIAL PERFUSION MULTI Appointment Date:10/18/2024 10:00:00 AM Scheduled Provider:Mireille James MD Location:[facility] Appointment Type:[facility] Follow Up Medications aspirin 81 mg oral enteric coated tablet 81 mg, 1 tablet(s), Oral, daily, Tab EC, 0 Start Date: 11/07/20 Status: Ordered losartan 50 mg oral tablet 50 mg, 1 tablet(s), Oral, daily, 90 tablet(s), Tablet(s), 4, 4, Route to Pharmacy Electronically, [facility] #[id number], [id number], 180, cm, 06/16/23 13:36:00 [employer]ODUCTION MECH[employer]IC TIN CANS, Height, 113.4, kg, 06/16/23 13:36:00 PRODUCTION MECH[employer]IC TIN CANS, Weight Start Date: 09/08/23 Status: Ordered nadolol 20 mg oral tablet 20 mg, 1 tablet(s), Oral, daily, 90 tablet(s), Tablet(s), 4, 4, Route to Pharmacy Electronically, [facility] #[id number], [id number], 180, cm, 11/16/22 11:46:00 CDT, Height, 113.63, kg, 11/16/22 11:46:00 CDT, Weight Start Date: 05/10/23 Status: Ordered nitroglycerin 0.4 mg sublingual tablet 0.4 mg, 1 tablet(s), Sublingual, q5min, PRN, Tablet(s), 0, chest pain Start Date: 11/07/20 Status: Ordered simvastatin 40 mg oral tablet 40 mg, 1 tablet(s), Oral, qhs, 90 tablet(s), Tablet(s), 4, 4, Route to Pharmacy Electronically, [facility] #[id number], [id number], 180, cm, 06/16/23 13:36:00 [employer]ODUCTION MECH[employer]IC TIN CANS, Height, 113.4, kg, 06/16/23 13:36:00 PRODUCTION MECH[employer]IC TIN CANS, Weight Start Date: 09/05/23 Status: Ordered Tylenol 325 mg oral tablet 650 mg, 2 tablet(s), Oral, [id number], PRN, Tablet(s), 0, pain, mild Start Date: 11/07/20 Status: Ordered ZyrTEC 10 mg, Oral, daily, 0 Start Date: 11/16/22 Status: Ordered Problem List Condition Confirmation Course Effective Dates Status H ealth Status Informant Coronary artery disease 1 Confirmed Active S/P CABG (coronary artery bypass graft) 2 Confirmed Active History of left knee replacement 3 Confirmed Active S/P arthroscopic surgery of right knee 4 Confirmed Active H/O arthroscopic knee surgery Confirmed Active Hypertension Confirmed Active Hyperlipidemia Confirmed Active Obesity Confirmed Active 1status post CABG surgery August 2001 [place] [address], after presenting with chest discomfort and an abnormal stress test with normal left ventricular function (MARIE to LAD with distal endarterectomy and LAD vein patch angioplasty with anastomosis of the MARIE into the vein patch, saphenous veingraft to the circumferential marginal, and saphenous vein graft to the RCA). Most recent nuclear medicine stress test (04-19-17): 7:17, 8.3 METs, clinically, electrocardiographically, and scintigraphically normal, LVEF 57%. 2LIMA to LAD with distal endarterectomy and LAD vein patch angioplasty with anastomosis of the MARIE into the vein patch, saphenous vein graft to the circumferential marginal, and saphenous vein graft to the RCA 3in 2007 4Feb 2016 Procedures Procedure Date Related Diagnosis Body Site Status CABG x 3 - Coronary artery b ypass grafts x 3 2001 Completed Elbow joint operations Co mpleted Knee replacement Complete d Social History Social History Type Response Alcohol Current some day alc ohol user, 1-2 times per year Substance Abuse Never drug user Smoking Status Former smoker;Never; Tobacco Cessation Counseling Requested N/A 1 entered on: 06/16/23 Sex 1Former Smoker; Quit 06/27/1993. Smokeless Tobacco: Never used smokeless tobacco. Comments: tobacco use d/c in approximately 1993, after a 20 pack year history. [facility] * Event Display: Echocardiogram Report Cardiology * Event Display: [facility] Echo Complete * Event Display: [facility] Echo Complete Authored Date: [id number] [facility] A member of the [facility] [address] [place] [address] \\ [phone] Transthoracic Echocardiogram Patient Name: LORA AL L : 1940 Study Date: 04/19/2024 2:36:55 PM Gender: M Applications Chemist: EILEEN Location: [facility] [address] [facility] Provider: MIREILLE JAMES Height(Cm): 180 BSA: 2.35 Weight(Kg): 110 BP: 140 / 80 Quality: Technically Difficult Study Order Provider: MIREILLE JAMES PROCEDURES: Echocardiographic Report: Transthoracic echocardiogram with complete 2D, M-Mode, color and Doppler examination. 1 ml of intravenous Definity contrast was utilized to enhance endocardial visualization. INDICATIONS: CAD - I25.10. Measurements: 2D/M Mode Doppler Measurement Value Normal Range Measurement Value Normal Range LVIDd 2D 5.0 [ 3.9 - 5.7 ] cm LVOT Peak Ben 72.9 [ 80.0 - 150.0 ] cm/s LVIDs 2D 3.2 [ 2.0 - 3.8 ] cm LVOT VTI 14.8 [ 20.0 - 30.0 ] cm IVSd 2D 1.4 [ 0.6 - 1.0 ] cm LVOT Diam 2.1 [ 1.4 - 2.6 ] cm LVPWd 2D 1.4 [ 0.6 - 1.0 ] cm SI LVOT 21.85 [ 35.00 - 70.00 ] mL/m2 LV Mass 291 g AV Peak Ben 103.4 cm/s LV Mass Index 124 [ 49 - 115 ] g/m2 AV Peak PG 4.3 mmHg RWT 0.56 [ 0.00 - 0.45 ] AV Mean PG 2.4 mmHg LV FS 2D 34 [ 25 - 47 ] % AV VTI 19.7 cm LA Volume Index 22.45 [ 20.00 - 34.00 ] cc/m2 COOPER VTI 2.60 cm2 RVDd 2D 3.3 [ 0.0 - 4.2 ] cm AV DV Index (Velocity) 0.71 [ >= 0.50 ] Tapse 1.1 [ 1.6 - 2.3 ] cm AV DVTI Index (VTI) 0.75 [ >= 0.50 ] RA Area 15 [ 8 - 20 ] cm2 MV E Peak Ben 53.1 [ 70.0 - 120.0 ] cm/s Pulm Art Diam 2.2 [ 1.5 - 2.1 ] cm MV A Peak Ben 83.8 cm/s IVC Diam 1.9 [ 1.1 - 2.1 ] cm MV E/A 0.6 LVOT Diam 2.1 [ 1.4 - 2.6 ] cm PV Peak Ben 133.0 [ 80.0 - 150.0 ] cm/s AoR Diam 2D 3.0 [ 2.0 - 3.7 ] cm PV Peak PG 7.[address] [place] 2.7 [ 1.7 - 3.4 ] cm Lat E` Ben 3.14 cm/s Asc Ao Diam 2D 3.7 [ 2.0 - 3.7 ] cm Med E` Ben 3.25 cm/s ACS MM 2.1 cm Average E` 3.20 cm/s LA Volume BP 52.76 ml E/E` 16.59 [ <= 14.00 ] Measurement Value Normal Range Measurement Value Normal Range 2D/M Mode Doppler - FINDINGS: Left Ventricle: Normal left ventricular cavity size. Normal left ventricular systolic function. The left ventricular ejection fraction is visually estimated at 55 %. Increased LA pressure, Grade II Diastolic Dysfunction. Mild left ventricular hypertrophy. Concentric hypertrophy. Right Ventricle: The right ventricle is not well visualized. Normal right ventricular size. Left Atrium: The left atrium is normal in size. Right Atrium: The right atrium is normal in size. Atrial Septum: Normal atrial septum. Mitral Valve: No mitral valve regurgitation is seen. No mitral stenosis. Aortic Valve: No hemodynamically significant aortic stenosis by Doppler. Trileaflet aortic valve. Mild aortic regurgitation. Tricuspid Valve: Tricuspid regurgitant jet velocity envelope is inadequate for determination of RVSP. No evidence of tricuspid regurgitation. Pulmonic Valve: There is trace pulmonic regurgitation. Pericardium: Normal pericardium with no significant pericardial effusion. Aorta: Normal ascending aorta. Aortic root size is normal. IVC: Normal inferior vena cava appearance. Rhythm: The rhythm during the study was normal sinus rhythm. CONCLUSIONS: 1. Technically difficult study. 2. Normal left ventricular cavity size. Normal left ventricular systolic function. The left ventricular ejection fraction is visually estimated at 55 %. Increased LA pressure, Grade II Diastolic Dysfunction. Mild concentric left ventricular hypertrophy. 3. The right ventricle is not well visualized. Normal right ventricular size. 4. Normal atria. 5. Mild aortic regurgitation. Electronically Signed By: Mireille James MD 2024-04-19 15:24:18 CDT Patient Care team information Care Team Personnel Name: Joe Colon M.D. Position: ZZ FAX ONLY - MD NOT ON STAFF Member Role: Primary Care Physician Address: Address: [address] [place] [address] [address] [place], [place] [address]- Name: Mireille James MD Position: Physician - Cardiology Member Role: Aboriginal Ceremonial Celebrant Address: Address: [address] [place] [address] [place] [address] Name: Zuhair Canseco MD Position: Physician - Cardiology Member Role: Specialist Physician Address: Address: [address] [place] [address] [place] [address] Name: Uday Arrington M.D. Member Role: Specialist Physician Address: Address: [address] [place] [address] Name: Mireille James MD Position: Physician - Cardiology Med Service: Shelf Drier Operator Sleeping Bag Filler Role: Attending Physician Address: Address: [address] [facility] [address] Care Team Related Persons Name: GUSTABO AL Name: GUSTABO AL
--- OUTSIDE RECORDS SUMMARY | 2024-06-08 12:20 | XMS_ITS | Continuity of Care Document ---
Author Organization [facility] Address [address] [place] [id number] Care Team Providers Care Formula Room Worker Name Role Phone Joe Colon Primary Care Physician Encounter [facility] Financial Number [id number] Date(s): 04/30/24 - 04/30/[address] [phone] Discharge Disposition: Home or Self Care Attending Physician: Mireille James MD Admitting Physician: Mireille James MD Referring Physician: Mireille James MD Allergies, Adverse Reactions, Alerts Substance Criticality Severity Reaction Reaction Severity Status penicillins Active Assessment and Plan Future Appointments Appointment Date:10/18/2024 10:00:00 AM Scheduled Provider:Mireille James MD Location:[facility] Appointment Type:[facility] Follow Up Medications aspirin 81 mg oral enteric coated tablet 81 mg, 1 tablet(s), Oral, daily, Tab EC, 0 Start Date: 11/07/20 Status: Ordered Farxiga 10 mg oral tablet 10 mg, 1 tablet(s), Oral, daily, 90 tablet(s), Tablet(s), 6, 6, This medication can be used for both Heart Failure and Diabetes, please do not stop or substitute without talking to the prescribing physician., Print Requisition, 180.5, cm, 04/17/24 9:47:00 CDT, Height, 110, kg, 04/17/24 9:47:00 CDT,Weight Start Date: 04/20/24 Status: Ordered losartan 50 mg oral tablet 50 mg, 1 tablet(s), Oral, daily, 90 tablet(s), Tablet(s), 4, 4, Route to Pharmacy Electronically, [facility] #[id number], [id number], 180, cm, 06/16/23 13:36:00 COLD STRIP FEEDER, Height, 113.4, kg, 06/16/23 13:36:00 COLD STRIP FEEDER, Weight Start Date: 09/08/23 Status: Ordered nadolol 20 mg oral tablet 20 mg, 1 tablet(s), Oral, daily, 90 tablet(s), Tablet(s), 4, 4, Route to Pharmacy Electronically, [facility] #[id number], [id number], 180, cm, 11/16/22 11:46:00 CDT, Height, 113.63, kg, 11/16/22 11:46:00 CDT, Weight Start Date: 05/10/23 Status: Ordered nitroglycerin 0.4 mg sublingual tablet 0.4 mg, 1 tablet(s), Sublingual, q5min, PRN, Tablet(s), 0, chest pain Start Date: 11/07/20 Status: Ordered simvastatin 40 mg oral tablet 40 mg, 1 tablet(s), Oral, qhs, 90 tablet(s), Tablet(s), 4, 4, Route to Pharmacy Electronically, [facility] #[id number], [id number], 180, cm, 06/16/23 13:36:00 COLD STRIP FEEDER, Height, 113.4, kg, 06/16/23 13:36:00 COLD STRIP FEEDER, Weight Start Date: 09/05/23 Status: Ordered Tylenol 325 mg oral tablet 650 mg, 2 tablet(s), Oral, w2fnbos, PRN, Tablet(s), 0, pain, mild Start Date: [...] 1status post CABG surgery August 2001 [place] [address], after presenting with chest discomfort and an [...] operations Co mpleted Knee replacement Complete d Results Radiology Reports * Exam Date Time Procedure Performing Provider Status 04/30/24 3:00 PM PET CARDIAC STRESS M PI W/IMAGING [place] Chester Miller Nuclear Med Tech; Modified Notes: (PET CARDIAC STRESS MPI W/IMAGING [place]) Reason For Exam: shortness of breath PET CARDIAC STRESS MPI W/IMAGING [address] [address] Cardiology Services [phone] Myocardial Perfusion Imaging Report Patient Name: LORA AL L : 1940 (83y 8m) Study Date: 04/30/2024 2:45:00 PM Gender: M Tech: Location: [facility] Provider: MIREILLE JAMES Height(Inch): 72 BSA: 2.36 Weight(Lb): 242.51 BMI: 32.89 Order Provider: MIREILLE JAMES PROCEDURES: PET: Cardiovascular Stress Test performed in conjunction with PET MPI (Myocardial Perfusion Imaging) with Rubidium (Rb82) at rest and post regadenoson (Lexiscan) infusion. A limited CT scan of the chest was obtained solely for the purpose of attenuation correction and is not meant to serve as a diagnostic study. PRIMARY INDICATIONS: Shortness of Breath R06.02. FINDINGS: Medications: Losartan. nadolol. Simvastatin. Supervising Staff: Supervising Nurse: Sheela Garcia RN. Supervising Physician: Dariana Ji MD. Cardiac History: s/p PCI/stent. s/p CABG. Cardiac Risk Factors: Patient risk factors: hypercholesterolemia and hypertension. Procedure Data: One day rest/stress protocol was used. ECG tracing prep performed by Liliam Trevino RN. Regadenoson was administered intravenously: 0.4mg over 10 seconds. Radiation dose injected intravenously at stress was 24.20 millicuries. ECG At Rest: sinus rhythm. Occasional VPC's. Interpretable for ischemia. Stress Hemodynamics: Baseline HR 87 bpm Baseline BP 143/69 mm Hg Target HR 117 bpm Predicted Maximal HR 138 bpm BP at Peak Exercise 136/56 mm Hg Maximum BP observed 136/ 56 mmHg 03:26 Reason for termination of stress test End of protocol. No angina during exercise. Heart Rate Response: Appropriate heart rate response. Blood pressure Response: Appropriate blood pressure response. Cardiac Symptoms: Patient had no symptoms during stress test. ECG Post Stress: ECG Post Stress: no diagnostic ST segment changes for ischemia. sinus rhythm. Stress Arrhythmia: occasional PVCs. Quality: Technical quality of study is excellent. Results: Abnormal perfusion imaging. Images demonstrated moderately dilated LV size. RV tracer uptake at stress was normal. normal tracer uptake in the lungs. Perfusion Defect 1: Perfusion Defect 1 is large in size. Defect is of severe intensity. The defect involves the anterior and anterolateral wall extending from the base to the apex. On the resting images, this defect is completely reversible. Semiquantitative Analysis: The TID ratio is 1.23 . Summed Stress Score (SSS) of 11.0 . Total percentage of abnormal myocardium at stress is 16.18 %. Summed Rest Score (SRS) of 0.0 . Total percentage of abnormal myocardium at rest is 0.00 %. Summed difference score (SDS) is 11.0 . Total percentage of ischemic myocardium is 16.18 %. These findings are consistent with severe ischemia. LV Function: Stress Ejection Fraction is 55 % Resting Ejection Fraction is 56 % Stress End-diastolic volume is 179 cc Stress End-systolic volume is 81 cc LV function is normal. No wall motion abnormalities. Coronary Flow Hernando: LAD: Stress=1.87 Rest=0.75 CFR=2.49 LCX: Stress=2.05 Rest=0.82 CFR=2.50 RCA: Stress=2.86 Rest=0.77 CFR=3.70 Global: Stress=2.14 Rest=0.77 CFR=2.78 Lortie method on Invia software, corrected for rate pressure product of 9,000. Calcium Score: Calcium score was not calculated as the patient has known history of CAD. CONCLUSIONS: 1. Myocardial perfusion imaging is abnormal. 2. Large area of severe ischemia in the LAD/diagonal territory including the anterior and anterolateral wall extending from the base to apex. 3. Clinically and electrocardiographically negative response to vasodilator administration. 4. Stress Ejection Fraction is 55 %. Resting Ejection Fraction is 56 %. Moderately dilated LV. LV function is normal. No wall motion abnormalities. 5. Coronary flow reserve: 2.78 (coronary flow reserve > 2.0 is considered to be normal). 6. CAC score not calculated as patient has known CAD. 7. Please refer to separately reported incidental findings by Radiology. Electronically Signed By: (ECG) Mireille James MD 2024-04-30 16:06:20 COLD STRIP FEEDER Electronically Signed By: (Imaging) Mireille James MD 2024-04-30 16:06:20 COLD STRIP FEEDER Dictating Provider: Mireille James MD Releasing Physician: Mireille James MD Signature Electronically Authorized Authorized Date/Time: 30-APR-2024 04:06 pm * Exam Date Time Procedure Performing Provider Status 04/30/24 3:00 PM PET/CT NON-CARDIAC S TRESS MPI FINDINGS Chester Miller Nuclear [employer] Tech; Auth (Verified) Notes: (PET/CT NON-CARDIAC STRESS MPI FINDINGS) Reason For Exam: shortness of breath PET/CT NON-CARDIAC STRESS MPI FINDINGS EXAM: NM PET MYOCARDIAL PERFUSION SCAN - RADIOLOGY INTERPRETATION OF NON-CARDIAC PORTION HISTORY: shortness of breath TECHNIQUE / FINDINGS: Limited CT imaging of the chest was performed as part of a myocardial perfusion PET scan. This is the radiology dictation non-cardiac portion of the exam. The cardiac PET interpretation will be dictated by cardiology separately. In the limited views of the chest, there is coronary artery calcification. Calcified atherosclerotic aortic plaque noted. Cardiac size is enlarged. Calcified granulomas are noted in the left upper lobe and left hilum. Median sternotomy has been performed. Please refer to the cardiology report for full details of the cardiac PET. (CPT: 55524) . Dictating Provider: Charis Givens M.D. Releasing Physician: Charis Gviens M.D. Signature Electronically Authorized Authorized Date/Time: 30-APR-2024 04:25 pm Social History Social History Type Response Alcohol Current some day alc ohol user, 1-2 times per year Substance Abuse Never drug user Smoking Status Former smoker;Never; Tobacco Cessation Counseling Requested N/A 1 entered on: 06/16/23 Sex Sex Representation Male (finding) 1Former Smoker; Quit 06/27/1993. Smokeless Tobacco: Never used smokeless tobacco. Comments: tobacco use d/c in approximately 1993, after a 20 pack year history. Cardiology * Event Display: Nuclear Cardiology Tracings * Event Display: Nuclear Cardiology Report Note * Event Display: Authorization to Treat * Event Display: Authorization to Treat Patient Care team information Care Team Personnel Name: Joe Colon M.D. Position: ZZ FAX ONLY - MD NOT ON STAFF Member Role: Primary Care Physician Address: [address] [place] [address]- Name: Mireille James MD Position: Physician - Cardiology Member Role: Warehouse Checker Address: [address] [place] [address] Name: Zuhair Canseco MD Position: Physician - Cardiology Member Role: Specialist Physician Address: [address] [place] [address] [place] Name: Uday Arrington M.D. Member Role: Specialist Physician Address: [address] [place] [address] Name: Mireille James MD Position: Physician - Cardiology Med Service: Tool Machine Set Up Operator Formula Room Worker Role: Referring Physician Address: [address] [place] [address] Care Team Related Persons Name: GUSTABO AL Name: GUSTABO AL Insurance Providers Guarantor name: LORA Rayne SERVANDO Health Plan Information #: 2 Payer: Medicare Supplement Member Number: [id number] Policy Number: NA Health Plan Information #: 1 Payer: Medicare Member Number: [id number] Policy Number: NA
--- OUTSIDE RECORDS SUMMARY | 2024-06-08 12:20 | XMS_ITS | Continuity of Care Document ---
Author Organization [facility] Address [address] [id number] Care Team Providers Care Mobile Equipment Operator Name Role Phone Joe Colon Primary Care Physician [phone] Encounter [facility] Financial Number [id number] Date(s): 06/16/23 - 06/16/23 [facility] [address] [phone] Encounter Diagnosis Coronary artery disease(Discharge Diagnosis) - 06/10/23 Hypertension(Discharge Diagnosis) - 06/10/23 Hyperlipidemia(Discharge Diagnosis) - 06/10/23 Discharge Disposition: Home or Self Care Attending Physician: Jonnathan James MD Referring Physician: Uday Arrington M.D. Allergies, Adverse Reactions, Alerts Substance Reaction Severity Status penicillins Active Assessment and Plan Future Appointments Appointment Date:03/22/2024 09:30:00 AM Scheduled Provider:Jonnathan James MD Location:[facility] Appointment Type:[facility] Follow Up Medications aspirin 81 mg oral enteric coated tablet 81 mg, 1 tablet(s), Oral, daily, Tab EC, 0 Start Date: 11/07/20 Status: Ordered losartan 50 mg oral tablet 50 mg, 1 tablet(s), Oral, daily, 90 tablet(s), Tablet(s), 3, 3, Route to Pharmacy Electronically, [facility] #[id number], [id number], 180, cm, 05/19/2022 1003, Height, 114.5, kg, 05/19/2022 1003, Weight Start Date: 05/19/22 Status: Ordered nadolol 20 mg oral tablet 20 mg, 1 tablet(s), Oral, daily, 90 tablet(s), Tablet(s), 4, 4, Route to Pharmacy Electronically, [facility] #[id number], [id number], 180, cm, 11/16/22 11:46:00 CDT, Height, 113.63, kg, 11/16/22 11:46:00 CDT, Weight Start Date: 05/10/23 Status: Ordered nitroglycerin 0.4 mg sublingual tablet 0.4 mg, 1 tablet(s), Sublingual, q5min, PRN, Tablet(s), 0, chest pain Start Date: 11/07/20 Status: Ordered simvastatin 40 mg oral tablet 40 mg, 1 tablet(s), Oral, qhs, 90 tablet(s), Tablet(s), 3, 3, Route to Pharmacy Electronically, [facility] #[id number], [id number], 180, cm, 05/19/2022 1003, Height, 114.5, kg, 05/19/2022 1003, Weight Start Date: 05/19/22 Status: Ordered Tylenol 325 mg oral tablet 650 mg, 2 tablet(s), Oral, [id number], PRN, Tablet(s), 0, pain, mild Start Date: 11/07/20 Status: Ordered ZyrTEC 10 mg, 0 Start Date: 11/16/22 Status: Ordered Problem [...] 1status post CABG surgery August 2001 [place] [address], after presenting with chest discomfort and an [...] graft to the RCA 3in 2007 4Feb 2017 Procedures Procedure Date Related Diagnosis Body Site Status CABG x 3 - Coronary artery b ypass grafts x 3 2001 Completed Elbow joint operations Co mpleted Knee replacement Complete d Vital Signs Most recent to oldest [Reference Range]: 1 Peripheral Pulse Rate [60-100 bpm] 71 bp m (06/16/23 1:36 PM) Blood Pressure [89-139/60-90 mm Hg] 140/ 78mm Hg *H* (06/16/23 1:36 PM) Height 180 cm (06/16/23 1:36 PM) Weight 113.4 kg (06/16/23 1:36 PM) Social History Social History Type Response Alcohol Current some day alc ohol user, 1-2 times per month Substance Abuse Never drug user Smoking Status Former smoker;Never; Tobacco Cessation Counseling Requested N/A 1 entered on: 06/16/23 Sex 1Former Smoker; Quit 06/27/1993. Smokeless Tobacco: Never used smokeless tobacco. Comments: tobacco use d/c in approximately 1993, after a 20 pack year history. Note * Event Display: Consent/Registration Forms Authored Date: * Event Display: Consent/Registration Forms Authored Date: * Event Display: Privacy Practice Authored Date: Cardiology Outpatient Note * Jonnathan James MD: PERFORM Event Display: Cardiology Office/Clinic Note Authored Date: Patient Information Name:LORA AL JR Address: [address] [place] [phone] Sex:Male Date of :1940 Emergency Contact:GUSTABO AL Location:[facility] Registration Date and Time:06/16/2023 13:32 [facility] Primary Care Physician: Joe Colon M.D., Attending Physician: Jonnathan James MD, Chief Complaint FOLLOW UP CAD AND OTHER DIAGNOSES History of Present Illness Lora Al Jr. is an 82??year old male who presents for cardiology follow-up in the setting of coronary artery disease, status post CABG surgery 2001, hypertension, hyperlipidemia, and obesity. The patient previously followed with Dr. Arrington but now that he is retired the patient will follow with me. ?? Doing well since last visit. He had a cold a few weeks ago.?? He noticed some shortness of breath when walking upstairs after his cold.?? He thinks these symptoms are??improving. ?? He goes to gym for 60 min??7 days a week. ??His exercise routine includes riding the stationary bike, as well as??using the??treadmill and??elliptical. Exercise tolerance pretty stable compared to 1 year ago. ?? No angina, PERERA, palpitations, LE swelling, lightheadedness, PND, syncope. ?? BP at home 90s-130s/50s-70s. ?? Lipids 05-13-16: chol 162, LDL 87, HDL 60, Tri 73.?? Lab 11-04-16: BUN/creat 18/0.8, K+ 4.6, Hgb A1c5.8.? Lab 05-02-17: chol 127, LDL 57, HDL 56, Tri 62, BUN/creat 23/.68, AST 18, Hgb 14.4, plt 195, TSH 2.35. Lab 10-20-17: BUN/creat 13/.7, K+ 4.6, AST 19, Hgb A1c 5.4. Lab 05-16-18: chol 141, LDL64, HDL 61, Tri 76, BUN/creat 19/.77, AST 19, Hgb A1c 5.6, TSH 1.71, Hgb 15.0. Lab 05-03-19: AST 19, TSH 1.9, Hgb 13.7, plt 210, chol 124, LDL 58, HDL 52, Tri 68, BUN/creat 23/0.79, K+ 4.7.?Labs 05-23-20: chol 118, LDL 47, HDL 52, Tri 103; AST 20, BUN/creat 24/0.89, K+ 4.5, Hgb A1c 5.8, TSH 2.49, Hgb 14.8. Labs 11-26-20: chol 129, LDL 63, HDL 50, Tri 79, BUN/creat 26/1.08.?? Labs 11-12-2021:??Cholesterol 128, LDL 53,??HDL??45,??AST 26, BUN/creatinine 20/1.2,??eGFR 58, potassium 5.3,??TSH 2.14,hemoglobin A1c 5.7, WBC 6.8, hemoglobin 14.4, platelets 195. ?? Labs 12-14-2021:??BUN/creatinine??22/1.1,??eGFR >60, potassium 5.0,??AST 28, WBC 6.8, hemoglobin 14.4,??platelets 195.?Labs 11-12-2021:??WBC??6.8, hemoglobin 14.4, platelets??195,??cholesterol 128,??LDL 53,??HDL 45, triglycerides 92, TSH??2.14.?? Labs 06-01-2022: BUN/creatinine??21/1.1, potassium 4.8, eGFR>60, AST 27, hemoglobin A1c 6.0.?Labs 05/20/2023: Sodium 139, potassium 4.7,??BUN/c reatinine 29/1.10,??LFTs normal,??total cholesterol 147, triglycerides 111,??LDL 68, HDL 50, hemoglobin A1c 5.6. ?? PAST MEDICAL HISTORY 1.?Coronary artery disease, status post CABG surgery August 2001 [place] [address], afterpresenting with chest discomfort and an abnormal stress test with normal left ventricular function (MARIE to LAD with distal endarterectomy and LAD vein patch angioplasty with anastomosis of the MARIE into the vein patch, saphenous vein graft to the circumferential marginal, and saphenous vein graft to the RCA).?? Nuclear medicine stress test (04-19-17):?? 7:17, 8.3 METs, clinically, electrocardiographically, and scintigraphically normal, LVEF 57%.?? Nuclear medicine stress test 10-29-20: 5:04, 7.1METs, anterior ischemia, fixed inferior defect, 3 and 5 beat runs of VT. cardiac catheterization 11-07-20:??Occluded left main,??long 70 to 80%??proximal and mid RCA??lesions,??patent MARIE to the mid LAD,??with??several??small diagonal branches with diffuse disease,??patent saphenous vein graft to the distal marginal,??patent saphenous vein graft to the distal RCA. 2.?LVEF 50-55%, by ventriculography 11-07-20 3. ??Hypertension 4.?Hyperlipidemia 5.?Right elbow fracture/surgery 06-05 6.?Left knee replacement in 2007 7.?Right knee arthroscopic surgery Jul 2016 8.?Arthroscopic knee surgery .?Varicose vein injections 10.? Right foot trauma (lawnmower) ?? SOCIAL HISTORY AND HABITS: The patient is and has 2 daughters. Tobacco use was discontinuedin approximately 1993, after a 20 pack year history.?? 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 EXAMINATION: GENERAL: white male in no acute distress, good historian, normal affect. NECK: there was no jugular venous distention. Carotid upstroke was moderate without bruits. CARDIAC EXAM: regular rate and rhythm. No S3. No dyskinesis. LUNGS: clear. ABDOMEN: soft and nontender. EXTREMITIES: no edema.?? Varicosities were noted. Neuro grossly normal, skin normal, ROM normal. ?? ASSESSMENT: 1.?Coronary artery disease, status post CABG surgery 09-14-01. ??No angina.?? Continue aspirin, statin and beta-juan j. 2.?Hypertension - controlled, based on home readings 3.?Hyperlipidemia - maintained on a statin, LDL at goal of less than 70 4.?Obesity -?? weight loss and continued exercise encouraged ?? Return to clinic in 9 months.?? Vitals and Measurements Vital Signs Height: 180 cm Height Inches Conversion: 70.9 Weight: 113.4 kg Weight in Pounds (kg conversion): 249.5 Body Surface Area: 2.3812 m2 Body Mass Index: 35 kg/m2 Systolic Blood Pressure:??140 mm Hg??High Diastolic Blood Pressure: 78 mm Hg Peripheral Pulse Rate: 71 bpm Oxygen Saturation: 95 % Medications aspirin 81 mg oral enteric coated tablet, 81 mg= 1 tablet(s), Oral, daily losartan 50 mg oral tablet, 50 mg= 1 tablet(s), Oral, daily, 3 refills nadolol 20 mg oral tablet, 20 mg= 1 tablet(s), Oral, daily, 4 refills nitroglycerin 0.4 mg sublingual tablet, 0.4 mg= 1 tablet(s), Sublingual, q5min, PRN simvastatin 40 mg oral tablet, 40 mg= 1 tablet(s), Oral, qhs, 3 refills Tylenol 325 mg oral tablet, 650 mg= 2 tablet(s), Oral, [id number], PRN ZyrTEC, 10 mg Allergies penicillins Voice to Text Technology Disclaimer This note may contain text inserted via Dragon or other voice to text assistive technology and wage adjuster, variances may occur. Outpatient Summary note * Ita Echeverria Precert: PERFORM Event Display: Ambulatory Patient Summary Authored Date: [id number] SERVANDO CHAVEZ LORA Rayne :1940 Visit Date:06/16/2023 [facility] Visit Instructions Your Diagnosis Coronary artery disease Hypertension Hyperlipidemia Your Care Team Attending Physician - Jonnathan James MD Primary Care Physician - Joe Colon M.D. Referring Physician - Uday Arrington M.D. Procedure History ???CABG x 3 - Coronary artery bypass grafts x 3 (2001)???Elbow joint operations???Knee replacement Discharge Vitals Vital Signs Height: 180 cm Height Inches Conversion: 70.9 Weight: 113.4 kg Weight in Pounds (kg conversion): 249.5 Body Surface Area: 2.3812 m2 Body Mass Index: 35 kg/m2 Systolic Blood Pressure:??140 mm Hg??High Diastolic Blood Pressure: 78 mm Hg Peripheral Pulse Rate: 71 bpm Oxygen Saturation: 95 % What to do next Scheduled Follow-Up Appointments 2023 9:30 AM CDT ?? With: Jonnathan James MD Where: [facility] Referral Information Referral Information ? No Results Found ? Medications What How Much When Instructions Unchanged acetaminophen (Tylenol 325 mg oral tablet) 2 tablet(s) By mouth Every 6 hours as needed for pain, mild Unchanged aspirin (aspirin 81 mg oral enteric coated tablet) 1 tablet(s) By mouth Daily Unchanged cetirizine (ZyrTEC) 10 Milligram Unchanged losartan (losartan 50 mg oral tablet) 1 tablet(s) By mouth Daily Unchanged nadolol (nadolol 20 mg oral tablet) 1 tablet(s) By mouth Daily Unchanged nitroglycerin (nitroglycerin 0.4 mg sublingual tablet) 1 tablet(s) Sublingual Every 5 minutes as needed for chest pain Unchanged simvastatin (simvastatin 40 mg oral tablet) 1 tablet(s) By mouth Every evening at bedtime Medications and Immunizations Administered Medication Administrations ? No Results Found ? Allergies penicillins Problems Ongoing Coronary artery disease H/O arthroscopic knee surgery History of left knee replacement Hyperlipidemia Hypertension Obesity S/P arthroscopic surgery of right knee S/P CABG (coronary artery bypass graft) PatientStated Former smoker Historical No qualifying data Common Emergency Awareness Tips IS IT A STROKE? Act FAST and Check for these signs: FACE Does the face look uneven? ARM Does one arm drift down? SPEECH Does their speech sound strange? TIME Call at any sign of stroke Voice to Text Technology Disclaimer This note may contain text inserted via Dragon or other voice to text assistive technology and wage adjuster, variances may occur. Patient Care team information Care Team Personnel Name: Joe Colon M.D. Position: [facility] FAX ONLY - MD NOT ON STAFF Member Role: Primary Care Physician Address: Address: [address] [place] [address] [address] [place], [place] [address]- Name: Jonnathan James MD Position: Physician - Cardiology Member Role: Instrument Repair Technician Address: Address: [address] [address] Name: Zuhair Canseco MD Position: Physician - Cardiology Member Role: Specialist Physician Address: Address: [address] [place] [address] Name: Uday Arrington M.D. Member Role: Specialist Physician Address: Address: [address] [place] [address] Name: Jonnathan James MD Position: Physician - Cardiology Med Service: Manufacturing Planner Mobile Equipment Operator Role: Attending Physician Address: Address: [address] [place] [address] Name: Uday Arrington M.D. Med Service: Manufacturing Planner Mobile Equipment Operator Role: Referring Physician Address: Address: [address] [place] [address] Care Team Related Persons Name: GUSTABO AL Name: GUSTABO AL
--- OUTSIDE RECORDS SUMMARY | 2024-06-08 12:20 | XMS_ITS | Continuity of Care Document ---
Author Organization [facility] Address [address] [id number] Care Team Providers Care Planning Supervisor Name Role Phone Joe Colon Primary Care Physician [phone] Encounter [facility] Financial Number [id number] Date(s): 06/06/24 - 06/06/24 [facility] [address] [id number] Encounter Diagnosis Coronary artery disease(Discharge Diagnosis) - 05/31/24 Hyperlipidemia(Discharge Diagnosis) - 05/31/24 Hypertension(Discharge Diagnosis) - 05/31/24 Obesity(Discharge Diagnosis) - 05/31/24 Discharge Disposition: Home or Self Care Attending Physician: Jonnathan James MD Referring Physician: Jonnathan James MD Encounter Type: Clinic Allergies, Adverse Reactions, Alerts Substance Criticality Severity Reaction Reaction Severity Status penicillins Active Assessment and Plan Future Appointments Appointment Date:10/18/2024 10:00:00 AM Scheduled Provider:Jonnathan James MD Location:[facility] Appointment Type:[facility] Follow Up Medications aspirin 81 mg oral enteric coated tablet 81 mg, 1 tablet(s), Oral, daily, Tab EC, 0 Start Date: 11/07/20 Status: Ordered Repeat number: 1 atorvastatin 40 mg oral tablet 40 mg, 1 tablet(s), Oral, daily, 90 tablet(s), Tablet(s), 4, 4, Route to Pharmacy Electronically, [facility] #[id number], [id number], 179.9, cm, 06/06/24 10:24:00 AWS ARCHITECT, Height, 109.5, kg, 06/06/24 10:24:00 AWS ARCHITECT, Weight Start Date: 06/06/24 Status: Ordered Quantity: 90.0 Unit: Repeat number: 5 Farxiga 10 mg oral tablet 10 mg, 1 tablet(s), Oral, daily, 30 tablet(s), Tablet(s), 0, This medication can be used for both Heart Failure and Diabetes, please do not stop or substitute without talking to the prescribing physician. Start Date: 05/10/24 Status: Ordered Quantity: 30.0 Unit: Repeat number: 1 LOSARTAN 50MG TABLETS LOSARTAN 50MG TABLETS, TAKE 1 TABLET BY MOUTH DAILY Start Date: 05/10/24 Status: Ordered Repeat number: 1 nadolol 20 mg oral tablet 20 mg, 1 tablet(s), Oral, daily, 30 tablet(s), Tablet(s), 0 Start Date: 05/10/24 Status: Ordered Quantity: 30.0 Unit: Repeat number: 1 nitroglycerin 0.4 mg sublingual tablet 0.4 mg, 1 tablet(s), Sublingual, q5min, PRN, Tablet(s), 0, chest pain Start Date: 11/07/20 Status: Ordered Repeat number: 1 Plavix 75 mg oral tablet 75 mg, 1 tablet(s), Oral, daily, 90 tablet(s), Tablet(s), 4, 4, do not fill for refills, Route to Pharmacy Electronically, [facility] #[id number], [id number], 180.5, cm, 05/10/24 12:14:00 AWS ARCHITECT, Height, 109.2, kg, 05/10/24 12:14:00 AWS ARCHITECT, Weight Start Date: 05/11/24 Status: Ordered Quantity: 90.0 Unit: Repeat number: 5 Tylenol 325 mg oral tablet 650 mg, 2 tablet(s), Oral, [id number], PRN, Tablet(s), 0, pain, mild Start Date: 11/07/20 Status: Ordered Repeat number: 1 Vitamin D Oral, daily, 0 Start Date: 06/06/24 Status: Ordered Repeat number: 1 ZyrTEC 10 mg, Oral, daily, 0 Start Date: 11/16/22 Status: Ordered Repeat number: 1 Problem List Condition Confirmation Course Effective Dates [...] 1status post CABG surgery August 2001 [place] [address], after presenting with chest discomfort and an [...] b ypass grafts x 3 2001 Completed Amputation great toe Comp leted Elbow joint operations Co mpleted Knee replacement Complete d Vital Signs Most recent to oldest [Reference Range]: 1 Peripheral Pulse Rate [60-100 bpm] 70 bp m (06/06/24 10:24 AM) Blood Pressure [89-139/60-90 mm Hg] 150/ 80mm Hg *H* (06/06/24 10:24 AM) Height 179.9 cm (06/06/24 10:24 AM) Weight 109.5 kg (06/06/24 10:24 AM) Social History Social History Type Response Alcohol Current some day alc ohol user, 1-2 times per year Substance Abuse Never drug user Smoking Status Former smoker;Never; Tobacco Cessation Counseling Requested N/A 1 entered on: 06/06/24 Sex Sex Representation Male (finding) 1Former Smoker; Quit 06/27/1993. Smokeless Tobacco: Never used smokeless tobacco. Comments: tobacco use d/c in approximately 1993, after a 20 pack year history. Cardiology Outpatient Note * Jonnathan James MD: PERFORM Event Display: Cardiology Office/Clinic Note Authored Date: Patient Information Name:LORA AL Address: [address] [place] [id number] Sex:Male Date of :1940 Emergency Contact:GUSTABO AL Location:[facility] Registration Date and Time:06/06/2024 10:03 AWS ARCHITECT Primary Care Physician: Joe Colon M.D., Attending Physician: Jonnathan James MD, Chief Complaint F/u from Stent Placement History of Present Illness Lora Al Jr. is an 83 year old male who presents for cardiology follow-up in the setting of coronary artery disease, status post CABG surgery 2001, hypertension, hyperlipidemia, and obesity. ?? Today he thinks his breathing has improved??since his PCI.?? He is walking for exercise. ??He prefers to not participate in cardiac rehab. ?? He says blood pressures at home??are good ??but is unsure of the actual number. ?? No angina, lightheadedness, LE swelling, palpitations, shortness of breath. ?? Recent cardiac testing: TTE??04/20/2024: TDS, normal LV size, LVEF 55%, grade 2 diastolic dysfunction, mild concentric LVH,??RV not well-seen, normal atria, mild??AR. Lexiscan MPI PET??04/30/2024:??Large area of severe ischemia in the anterior and anterolateral wall extending from base to apex, stress EF 55%, CFR 2.78. PCI 05/10/2024:??Occluded left main,??70%??proximal to mid RCA, competitive filling in the distal vessel,??patent??MARIE to the mid LAD,??SVG to RCA??that is patent. Patent??SVG??to the OM??with??70%??lesion??at the anastomosis site??status post??PCI with??HERMINIO x 1??with good result.?? LVEDP 12. ?? Lipids 11-17-16: chol 162, LDL 87, HDL 60, Tri [...] triglycerides 111,??LDL 68, HDL 50, hemoglobin A1c 5.6.??Labs 11/24/2023: Hemoglobin 14.2,??platelets 182, sodium 136, potassium 5.0,??BUN 27,??creatinine 1.0.??Lipid panel 11/24/2023: Total cholesterol 137, triglycerides 94,??LDL 68, HDL 53. ?? PAST MEDICAL HISTORY 1.?Coronary artery disease, status post CABG surgery August 2001 [place] [address], afterpresenting with chest discomfort and an abnormal [...] elbow fracture/surgery 06-05 6.?Left knee replacement in 2008 7.?Right knee arthroscopic surgery Jul 2016 8.?Arthroscopic knee surgery 9.?Varicose vein injections 10.? Right foot trauma (lawnmower) ?? SOCIAL HISTORY AND HABITS: The patient is and has 2 daughters. Tobacco use was discontinuedin approximately 1993, after a 20 pack year history.?? 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 EXAMINATION: GENERAL: white male in no acute distress, good historian, normal affect. NECK: there was no jugular venous distention. Carotid upstroke was moderate without bruits. CARDIAC EXAM: regular rate and rhythm. No S3. No dyskinesis. LUNGS: Faint crackles in lung bases bilaterally. ABDOMEN: soft and nontender. EXTREMITIES: no edema.?? Varicosities were noted. Neuro grossly normal, skin normal, ROM normal. ?? ASSESSMENT: 1.?? HFpEF -NYHA class I. ??Euvolemic and well compensated on exam.?? Continue Farxiga. 2.?Coronary artery disease, status post CABG 2001, PCI??with HERMINIO to OM 05/10/2024.?No angina.?? Plan to continue DAPT for 1 year,??followed by likely Plavix monotherapy.?Patient has deferred cardiac rehab.?? Change simvastatin to atorvastatin. ??Continue beta-juan j. 3.?Hypertension -blood pressure above goal of less than 130/80.?? He will monitor readings at home and let me know if he is persistently above goal. ??Plan to add??losartan??if above goal. 4.?Hyperlipidemia -changing simvastatin to atorvastatin. 5.?Obesity -?? weight loss and continued exercise encouraged ?? Longitudinal care is provided today for patient's serious ongoing issues.?This office is the continuing focal point for these health services, providing continuity of care for multiple complex issues.?See Summary/Plan section.?Follow up visit arranged. ?Return to clinic in??6 months.? Vitals and Measurements Vital Signs Height: 179.9 cm Height Inches Conversion: 70.8 Weight: 109.5 kg Weight in Pounds (kg conversion): 240.9 Body Surface Area: 2.3392 m2 Body Mass Index: 33.83 kg/m2 Systolic Blood Pressure:??150 mm Hg??High Diastolic Blood Pressure: 80 mm Hg Peripheral Pulse Rate: 70 bpm Oxygen Saturation: 96 % Medications aspirin 81 mg oral enteric coated tablet, 81 mg= 1 tablet(s), Oral, daily atorvastatin 40 mg oral tablet, 40 mg= 1 tablet(s), Oral, daily, 4 refills Farxiga 10 mg oral tablet, 10 mg= 1 tablet(s), Oral, daily LOSARTAN 50MG TABLETS nadolol 20 mg oral tablet, 20 mg= 1 tablet(s), Oral, daily nitroglycerin 0.4 mg sublingual tablet, 0.4 mg= 1 tablet(s), Sublingual, q5min, PRN Plavix 75 mg oral tablet, 75 mg= 1 tablet(s), Oral, daily, 4 refills Tylenol 325 mg oral tablet, 650 mg= 2 tablet(s), Oral, [id number], PRN Vitamin D, Oral, daily ZyrTEC, 10 mg, Oral, daily Allergies penicillins Voice to Text Technology Disclaimer This note may contain text inserted via Dragon or other voice to text assistive technology and supplier quality, variances may occur. Patient Care team information Care Team Personnel Name: Joe Colon M.D. Position: [facility]EE[facility] FAX ONLY - NOT ON STAFF Member Role: Primary Care Physician Address: [address] [place] [address] [address] [place] [address]- Telecom: Name: Jonnathan James MD Position: Physician - Cardiology Member Role: Distributor Operator Address: [address] [facility] [address] [place] [address] Telecom: Name: Jaun Payton MD Position: Physician - Cardiology Member Role: Distributor Operator Address: [address] [facility] [address] Telecom: Name: Zuhair Canseco MD Position: Physician - Cardiology Member Role: Specialist Physician Address: [address] [facility] [address] [place] [address] Telecom: Name: Sinan Belle MD Position: Physician - Cardiology Member Role: Distributor Operator Address: [address] [facility] [address] [place] [address] [place] Telecom: Name: Uday Arrington M.D. Member Role: Specialist Physician Address: [address] [facility] [address] [place], [place] [address] Telecom: Name: Jonnathan James MD Position: Physician - Cardiology Med Service: Multimedia Services Coordinator Planning Supervisor Role: Referring Physician Address: [address] [facility] [address] Telecom: Care Team Related Persons Name: GUSTABO AL Name: GUSTABO AL Insurance Providers Guarantor name: LORA AL Health Plan Information #: 1 Payer: Medicare Member Number: [id number] Policy Number: NA Group Number: NA Health Plan Information #: 2 Payer: Medicare Supplement Member Number: [id number] Policy Number: NA Group Number: NA
--- OUTSIDE RECORDS SUMMARY | 2024-06-08 12:20 | XMS_ITS | Continuity of Care Document ---
Author Organization [facility] Address [address] [facility] [address] [place], [place] [id number] Care Team Providers Care Hematology Specialist Name Role Phone Joe Colon Primary Care Physician Encounter [facility] Financial Number [id number] Date(s): 11/16/22 - 11/16/22 [facility] [address] [facility] [address] [place], [place] [id number] Encounter Diagnosis Coronary artery disease(Discharge Diagnosis) - 11/11/22 Hypertension(Discharge Diagnosis) - 11/11/22 Hyperlipidemia(Discharge Diagnosis) - 11/11/22 Discharge Disposition: Home or Self Care Attending Physician: Uday Arrington M.D. Referring Physician: Uday Arrington M.D. Allergies, Adverse Reactions, Alerts Substance Reaction Severity Status penicillins Active Medications aspirin 81 mg oral enteric coated tablet 81 mg, 1 tablet(s), Oral, daily, Tab EC, 0 Start Date: 11/07/20 Status: Ordered losartan 50 mg oral tablet 50 mg, 1 tablet(s), Oral, daily, 90 tablet(s), Tablet(s), 3, 3, Route to Pharmacy Electronically, [facility] #[id number], [id number], 180, cm, 05/19/2022 1003, Height, 114.5, kg, 05/19/2022 1003, Weight Start Date: 05/19/22 Status: Ordered nadolol 20 mg oral tablet 20 mg, 1 tablet(s), Oral, daily, 90 tablet(s), Tablet(s), 3, 3, Route to Pharmacy Electronically, [facility] #[id number], [id number], 180, cm, 05/19/2022 1003, Height, 114.5, kg, 05/19/2022 1003, Weight Start Date: 05/19/22 Status: Ordered nitroglycerin 0.4 mg sublingual tablet 0.4 mg, 1 tablet(s), Sublingual, q5min, PRN, Tablet(s), 0, chest pain Start Date: 11/07/20 Status: Ordered simvastatin 40 mg oral tablet 40 mg, 1 tablet(s), Oral, qhs, 90 tablet(s), Tablet(s), 3, 3, Route to Pharmacy Electronically, [facility] #[id number], [id number], 180, cm, 05/19/2022 1003, Height, 114.5, kg, 05/19/2022 1003, Weight Start Date: 05/19/22 Status: Ordered Tylenol 325 mg oral tablet 650 mg, 2 tablet(s), Oral, [id number], PRN, Tablet(s), 0, pain, mild Start Date: [...] 1status post CABG surgery August 2001 [place] [address], after presenting with chest discomfort and an [...] Coronary artery b ypass grafts x 3 2002 Completed Elbow joint operations Co mpleted Knee replacement Complete d Vital Signs Most recent to oldest [Reference Range]: 1 Blood Pressure [89-139/60-90 mm Hg] 121/ 66mm Hg (11/16/22 11:46 AM) Height 180 cm (11/16/22 11:46 AM) Weight 113.63 kg (11/16/22 11:46 AM) Social History Social History Type Response Alcohol Current some day alc ohol user, 1-2 times per month Substance Abuse Never drug user Smoking Status Former smoker;Never; Tobacco Cessation Counseling Requested N/A 1 entered on: 05/19/22 Sex 1Former Smoker; Quit 06/27/1993. Smokeless Tobacco: Never used smokeless tobacco. Comments: tobacco use d/c in approximately 1993, after a 20 pack year history. Cardiology Outpatient Note * Uday Arrington M.D.: PERFORM Event Display: Cardiology Office/Clinic Note Authored Date: [id number] Patient Information Name:LORA AL JR Address: [address] [place] [phone] Sex:Male Date of :1940 Emergency Contact:GUSTABO AL Location:[facility] Registration Date and Time:11/16/2022 12:00 CDT Primary Care Physician: Joe Colon M.D., Attending Physician: Uday Arrington M.D., Chief Complaint Follow-up for CAD History of Present Illness Primary Care Physician: Dr. Joe Colon, [address], [address], [place] [address] ? This encounter was performed by telemedicine. ??This was offered over appropriate audio-visual technology (over [employer] patient portal and/or using other appropriate internet platforms), afterobtaining informed consent from patient. ?? But due to lack of access at home for computer or smartphone to accommodate video technology, only audio technology was able to be employed for the encounter. Phone time was??12??minutes by me (in addition to time spent on phone with MA and/or staff in advance of my call, and previsit review of outside data by me) ?? Virtual exam on line including vitals, reported by patient from home and/or observed by me remotely: BP 121/66??mmHg Weight??250 ??lb Patient sounds alert and oriented & in no distress. Patient is calm and cooperative, with normal judgment. Speech is clear and coherent. ??Functional cognition is intact.Full exam deferred today due to COVID-19 pandemic; the physical exam from my last office visit is displayed below in regular exam section of this note. ? Lora Al Jr. is an 82??year old male who presents for cardiology follow-up in the setting of coronary artery disease, status post CABG surgery 2001, hypertension, hyperlipidemia, and obesity.?? He's??lost??1 lb??since last visit, after losing??4 lbs??the prior??visit, after gaining??2 lbs??theprior??visit, after gaining 2??lbs??the prior??visit, after losing??4??lbs the prior visit, after losing 4 lbs the prior visit, after gaining 4 lbs??the prior??visit, after his weight being unchangedthe prior visit, after gaining 2 lbs the prior visit, after losing 4 lbs the prior visit, after gaining 15 lbs the prior visit, after gaining 18 lbs the prior visit, after losing 42 lbs the prior visit, after gaining 7 lbs the prior visit, after losing 4 lbs the prior visit, after gaining 6 lbs theprior visit, after losing 6 lbs the prior visit, after gaining 6 lbs the visit before that.?? He has retired, and is now active with his jain.? Losartan was decreased to 50 mg daily 09-28-18. BPsat home have typically been in the 130s/70s, with occasional low and high readings.? Due to increasing exertional dyspnea??climbing 1 flight of steps and walking on a treadmill, and an abnormal stress test,??we proceeded with cardiac catheterization on 11-07-20,??which demonstrated severe duck[place] CAD with??patent bypass grafts and distal disease, resulting in continuation of medical management; he has not had recurrence of the exertional symptoms. ?? He's still??exercising at a gym 5x/week,??with treadmill, stationary bicycle, and other machines,??aiming for??85 minutes/session, without difficulty. ?? His 18 year old grand-daughter suddenly at age 18 in Jun 2021.?? He's received the??Covid-19 vaccine. ??He??still has??mild exertional shortness of breath with 1??flight of steps, though it hasn't affected his exercise, and has not progressed.?Lipids 05-13-16: chol 162, LDL 87, HDL 60, Tri 73.?? Lab 11-04-16: BUN/creat 18/0.8, K+ 4.6, Hgb A1c 5.8.? Lab 05-02-17: chol 127, LDL 57, HDL 56, Tri 62, BUN/creat 23/.68, AST 18, Hgb 14.4, plt 195, TSH 2.35. Lab 10-20-17: BUN/creat 13/.7, K+ 4.6, AST 19, Hgb A1c 5.4. Lab 05-16-18: chol 141, LDL 64, HDL 61, Tri 76, BUN/creat 19/.77, AST [...] 79, BUN/creat 26/1.08.?? Labs 11-12-2021:??Cholesterol 128, LDL 53,??HDL??45,??AST26, BUN/creatinine 20/1.2,??eGFR 58, potassium 5.3,??TSH 2.14, hemoglobin A1c 5.7, WBC 6.8, hemoglobin 14.4, platelets 195. Labs 12-14-2021:??BUN/creatinine??22/1.1,??eGFR >60, potassium 5.0,??AST 28, WBC 6.8, hemoglobin 14.4,??platelets 195.?Labs 11-12-2021:??WBC??6.8, hemoglobin 14.4, platelets??195,??cholesterol 128,??LDL 53,??HDL 45, triglycerides 92, TSH??2.14.?? Labs 06-01-2022: BUN/creatinine??21/1.1, potassium 4.8, eGFR>60, AST 27, hemoglobin A1c 6.0.? PAST MEDICAL HISTORY 1.?Coronary artery disease, status post CABG surgery August 2001 [place] [address], afterpresenting with chest discomfort and an abnormal [...] RCA. 2.?LVEF 50-55%, by ventriculography 11-07-20 3. ??Hypertension??hypertension 4.?Hyperlipidemia 5.?Right elbow fracture/surgery 06-05 6.?Left knee replacement in 2007 7.?Right knee arthroscopic surgery Jul 2016 8.?Arthroscopic knee surgery 9.?Varicose vein injections 10.? Right foot trauma (lawnmower) ?? SOCIAL HISTORY AND HABITS: The patient is and has 2 daughters. Tobacco use was discontinuedin approximately 1993, after a 20 pack year history.?? 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 EXAMINATION: GENERAL: white male in [...] 1.?Coronary artery disease, status post CABG surgery 09-14-01 2.?Hypertension - controlled, based on home readings 3.?Hyperlipidemia - maintained on a statin -stable 4.?Obesity -?? weight loss and continued exercise encouraged ?? Mr. Al is dong well,??21??years following CABG surgery, with demonstration of patent bypass grafts??with distal disease??by cardiac catheterization 11-07-20,??along with hypertension, treated hyperlipidemia, and obesity.?He describes no change in mild exertional dyspnea with steps, but not with significant exercise: call if this progresses, in which case we'll proceed with an ischemic evaluation.?? I applauded his excellent exercise program,??while encouraging??weight loss.?? I made no changes in his cardiac regimen today, continuing aspirin, a beta juan j, an ARB and a statin.?? Continue cardiovascular medications??at listed doses as per my medical reconciliation,??and refill as due.?? Call if possible cardiac-related symptoms, and otherwise follow up in 6 months.?Mr. Al agreed with this approach, and all of his questions were answered.? Uday Arrington MD, [facility]3] Office phone: [phone] Vitals and Measurements Vital Signs Height: 180 cm Height Inches Conversion: 70.9 Weight: 113.63 kg Weight in Pounds (kg conversion): 250 Body Surface Area: 2.3836 m2 Body Mass Index: 35.07 kg/m2 Systolic Blood Pressure: 121 mm Hg Diastolic Blood Pressure: 66 mm Hg Medications aspirin 81 mg oral enteric coated tablet, 81 mg= 1 tablet(s), Oral, daily losartan 50 mg oral tablet, 50 mg= 1 tablet(s), Oral, daily, 3 refills nadolol 20 mg oral tablet, 20 mg= 1 tablet(s), Oral, daily, 3 refills nitroglycerin 0.4 mg sublingual tablet, 0.4 mg= 1 tablet(s), Sublingual, q5min, PRN simvastatin 40 mg oral tablet, 40 mg= 1 tablet(s), Oral, qhs, 3 refills Tylenol 325 mg oral tablet, 650 mg= 2 tablet(s), Oral, [id number], PRN ZyrTEC, 10 mg Allergies penicillins Voice to Text Technology Disclaimer This note may contain text inserted via Dragon or other voice to text assistive technology and instruments sales representative, variances may occur. Patient Care team information Care Team Personnel Name: Joe Colon M.D. Position: FAX ONLY - NOT ON STAFF Member Role: Primary Care Physician Address: Address: [address] [place] [address] [place] [address]- Name: Zuhair Canseco MD Position: Physician - Cardiology Member Role: Specialist Physician Address: Address: [address] [place] [address] [place] [address] Name: Uday Arrington M.D. Position: Physician - Cardiology Member Role: Specialist Physician Address: Address: [address] [place] [address] [place] Name: Uday Arrington M.D. Position: Physician - Cardiology Med Service: Main Line Station Engineer Hematology Specialist Role: Attending Physician Address: Address: [address] [place] [address] Care Team Related Persons Name: GUSTABO AL Name: GUSTABO AL
--- OUTSIDE RECORDS SUMMARY | 2024-06-08 12:21 | XMS_ITS | Continuity of Care Document ---
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 Name Role Phone Joe Colon Primary Care Physician Encounter [facility] Financial Number [id number] Date(s): 05/10/24 - 05/11/[address] [phone] Encounter Diagnosis CAD (coronary artery disease)(Discharge Diagnosis) - 05/11/24 Discharge Disposition: Home with Physician Follow-up Attending Physician: Zuhair Canseco MD Admitting Physician: Zuhair Canseco MD Referring Physician: Jonnathan James MD Allergies, Adverse Reactions, Alerts Substance Criticality Severity Reaction Reaction Severity Status penicillins Active Assessment and Plan Future Appointments Appointment Date:06/06/2024 10:30:00 AM Scheduled Provider:Jonnathan James MD Location:[facility] Appointment Type:[facility] Follow Up Appointment Date:10/18/2024 10:00:00 AM Scheduled Provider:Jonnathan James MD Location:[facility] Appointment Type:[facility] Follow Up Functional Status 05/11/24 Living Environment OT Single level home Number of Stairs Inside 0 Number of Stairs Outside 2 Prior Bed Mobility Level Independent Prior Transfer Level Independent Prior Stair Ambulation Level Independent Bed Mobility Supine to sit, Independent Mobility Transfers Sit to Stand, Independent Ambulation Level Independent Ambulation Device Utilized None Weight bearing status Full weight bearin g Gait Training Distance 600 05/11/24 Activity Assistance Independent 05/10/24 Living Situation Home independently Medications aspirin 81 mg oral enteric coated [...] prescribing physician. Start Date: 05/10/24 Status: Ordered LOSARTAN 50MG TABLETS LOSARTAN 50MG TABLETS, TAKE 1 TABLET BY MOUTH DAILY Start Date: 05/10/24 Status: Ordered nadolol 20 mg oral tablet 20 mg, 1 tablet(s), Oral, daily, 30 tablet(s), Tablet(s), 0 Start Date: 05/10/24 Status: Ordered nitroglycerin 0.4 mg sublingual tablet 0.4 mg, 1 tablet(s), Sublingual, q5min, PRN, Tablet(s), 0, chest pain Start Date: 11/07/20 Status: Ordered Plavix 75 mg oral tablet 75 mg, 1 tablet(s), Oral, daily, 30 tablet(s), Tablet(s), 0, 0, Route to Pharmacy Electronically, [facility], [id number], 180.5, cm, 05/10/24 12:14:00 [employer], Height, 109.2, kg, 05/10/24 12:14:00 [employer], Weight Start Date: 05/11/24 Status: Ordered Plavix 75 mg oral tablet 75 mg, 1 tablet(s), Oral, daily, 90 tablet(s), Tablet(s), 4, 4, do not fill for refills, Route to Pharmacy Electronically, [facility] #[id number], [id number], 180.5, cm, 05/10/24 12:14:00 [employer], Height, 109.2, kg, 05/10/24 12:14:00 [employer], Weight Start Date: 05/11/24 Status: Ordered simvastatin 40 mg oral tablet 40 mg, 1 tablet(s), Oral, qhs, 30 tablet(s), Tablet(s), 0 Start Date: 05/10/24 Status: Ordered Tylenol 325 mg oral tablet 650 mg, 2 tablet(s), Oral, [id number], PRN, Tablet(s), 0, pain, mild Start Date: 11/07/20 Status: Ordered ZyrTEC 10 mg, Oral, daily, 0 Start Date: 11/16/22 Status: Ordered Mental Status 05/11/24 Orientation Oriented x 4 05/11/24 Orientation_ND Oriented x4 Hearing Impairment None Vision Impairment None Problem List Condition Confirmation Course Effective Dates [...] 1status post CABG surgery August 2001 [place] [address], after presenting with chest discomfort and an [...] Co mpleted Knee replacement Complete d Results Laboratory List Name Date Basic Metabolic Profile 05/11/24 Most recent to oldest [Reference Range]: 1 BUN [9-20 mg/dL] 22 mg/dL *H* (05/11/24 5:20 AM) Calcium [8.4-10.2 mg/dL] 8.8 mg/dL (05/11/24 5:20 AM) Chloride [98-107 mmol/L] 103 mmol/L (05/11/24 5:20 AM) CO2 [22-30 mmol/L] 27 mmol/L (05/11/24 5:20 AM) Glucose [74-106 mg/dL] 110 mg/dL *H* (05/11/24 5:20 AM) Potassium [3.4-5.1 mmol/L] 4.5 mmol/L 1 (05/11/24 5:20 AM) Sodium [137-145 mmol/L] 137 mmol/L (05/11/24 5:20 AM) Creatinine [0.70-1.30 mg/dL] 0.97 mg/dL (05/11/24 5:20 AM) eGFR(CKD-EPI) [>=90 mL/min/1.73m2] 78 mL /min/1.73m2 2 *L* (05/11/24 5:20 AM) eCrCl(C-Gault) 0.8 mL/min/kg 3 (05/11/24 5:20 AM) Anion Gap [7-16 mmol/L] 7 mmol/L (05/11/24 5:20 AM) 1Result Comment: Moderately hemolyzed. Results biased due to hemolysis. Contact the chemistry lab for additional information, if needed. 2Interpretive Data: eGFR (CKD-EPI) is an estimate of the glomerular filtration rate using the race-free 2020 Chronic Kidney Disease Epidemiology Collaboration equation. The calculation utilizes the patient???s recorded sex and age and the measured serum creatinine. Dbu-VOF-kuvqwai factors that may affect serum creatinine include altered generation (muscle wasting, amputees, body builders, vegan diet), drugs affecting tubular secretion (cimetidine and many others), and extra-renal elimination (gastrointestinal and ???third-space?? losses). Interpretive guidelines are based on steady-state renal function. 3Interpretive Data: When multiplied by the patient's body weight (in kg), eCrCl(C-Gault) is an estimate of the creatinine clearance using the Cockroft- Gault formula. It is widely used for adjusting drug dosages. Since the result is shown per kg, there is no established reference range. Vital Signs Most recent to oldest [Reference Range]: 1 2 3 Temperature Oral [35.8-37.3 DegC] 36.7 DegC (05/10/24 12:00 PM) Temperature Temporal Artery [35.8-38 DegC] 36.8 DegC (05/11/24 9:25 AM) 36.8 DegC (05/11/24 9:24 AM) 36.8 DegC (05/11/24 7:50 AM) Peripheral Pulse Rate [60-100 bpm] 75 bpm (05/11/24 10:05 AM) 76 bpm (05/10/24 6:58 PM) 80 bpm (05/10/24 5:30 PM) Respiratory Rate [14-22 br/min] 18 br/min (05/11/24 9:25 AM) 18 br/min (05/11/24 9:24 AM) 18 br/min (05/11/24 7:50 AM) Blood Pressure [89-139/60-90 mm Hg] 154/91mm Hg *H* (05/11/24 10:05 AM) 133/67mm Hg (05/11/24 9:25 AM) 133/67mm Hg (05/11/24 9:24 AM) Oxygen Therapy Room air (05/11/24:25 AM) Room air (05/11/24 9:24 AM) Room air (05/11/24 7:50 AM) Oxygen Flow Rate 0 L/min (05/11/24 10:05 AM) 0 L/min (05/10/24 2:55 PM) 0 L/min (05/10/24 12:00 PM) Height 180.5 cm (05/10/24 12:00 PM) Weight 109.2 kg (05/10/24 12:00 PM) Social History Social History Type Response [...] 1993, after a 20 pack year history. Hospital Discharge Instructions Patient Education 05/11/2024 09:28:34 Clopidogrel Oral Tablet Clopidogrel Oral Tablet Brands: Plavix Uses This medicine is used for the following purposes: ???prevent blood clots ???prevent stroke ???prevent heart attack Instructions This medicine may be taken with or without food. This medicine will work best if you take it at about the same time every day. Keep the medicine at room temperature. Avoid heat and direct light. It is important that you keep taking each dose of this medicine on time even if you are feeling well. If you forget to take a dose on time, take it as soon as you remember. If it is almost time for thenext dose, do not take the missed dose. Return to your normal schedule. Do not take 2 doses at one time. Drug interactions can change how medicines work or increase risk for side effects. Tell your healthcare providers about all medicines taken. Include prescription and vjze-dxe-[id number] medicines, vitamins, and herbal medicines. Speak with your doctor or pharmacist before starting or stopping any medicine. Cautions Tell your doctor and pharmacist if you ever had an allergic reaction to a medicine. Do not use the medication any more than instructed. Speak with your doctor before taking any medicine with aspirin. Contact your doctor if you notice a change in the amount or darkening of your urine. Tell the doctor or pharmacist if you are , planning to be , or . Call your doctor right away if you notice any unusual bleeding or bruising. Do not share this medicine with anyone who has not been prescribed this medicine. Some patients have serious side effects from this medicine. Ask your pharmacist to show you the information from the Food and Drug Administration (FDA) and discuss it with you. Side Effects The following is a list of some common side effects from this medicine. Please speak with your doctor about what you should do if you experience these or other side effects. ???itching Call your doctor or get medical help right away if you notice any of these more serious side effects: ???loss of balance ???bleeding or bruising ???chest pain ???coughing up blood or vomit that looks like coffee grounds ???fever ???severe or persistent headache ???fast or irregular heart beats ???pale or blue skin, lips or fingernails ???bloody or dark, tarry stools ???symptoms of stroke (such as one-sided weakness, slurred speech, confusion) ???swelling in the neck or throat ???unusual or unexplained tiredness or weakness ???blood in urine ???yellowing of eyes or skin A few people may have an allergic reaction to this medicine. Symptoms can include difficulty breathing, skin rash, itching, swelling, or severe dizziness. If you notice any of these symptoms, seek medical help quickly. Extra Please speak with your doctor, nurse, or pharmacist if you have any questions about this medicine. [email or web address] IMPORTANT NOTE: This document tells you briefly how to take your medicine, but it does not tell youall there is to know about it. Your doctor or pharmacist may give you other documents about your medicine. Please talk to them if you have any questions. Always follow their advice. There is a more complete description of this medicine available in Ivorian. Scan this code on your smartphone or tablet or use the web address below. You can also ask your pharmacist for a printout. If you have any questions, please ask your pharmacist. The display and use of this drug information is subject to Terms of Use. Copyright(c) 2023 [employer] ?? [employer]. All rights reserved. This information is not intended as a substitute for professional medical care. Always follow your healthcare professional's instructions. Cardiology * Event Display: Telemetry, Paper * Event Display: Telemetry, Paper * Event Display: Cardiac Cath Order * Event Display: Cardiac Cath Order Authored Date: [id number] [facility] [address] [place] [address] Cardiac Catheterization Report Patient Name: LORA AL L : 1940 (83y 9m) Study Date: 05/10/2024 1:53:37 PM Gender: M Tech: Location: [facility] Ref Provider: MARTA OWUSU Height(Cm): 180 BSA: 2.33 Weight(Kg): 109 Order Provider: MARTA OWUSU PROCEDURES: Left Heart Cardiac Cath: Left Heart Catherization with Coronary Angiography and Graft injection. Stent to Lesion 1. INDICATIONS: Stable Angina I20.8, Abnormal CV Function Study R94.39, Chest Pain, Unspecified R07.9, Coronary Artery Disease of [place] artery I25.10, Status Post CABG Z95.1, and Shortness of breath R06.2. CLINICAL PRESENTATION: A stent is referred for cardiac catheterization the setting of stable angina, dyspnea, atypical chest pain, known coronary disease with prior bypass, and abnormal noninvasive testing. FINDINGS: Dominance: Right dominant coronary artery circulation. Left Main Coronary Artery: The left main is occluded. Right Coronary Artery: The right coronary artery has a long tubular 70% stenosis extending from the proximal vessel into the mid vessel. There is competitive filling of the distal vessel. Syntax Score: Low. Graft 1: A widely patent MARIE graft is noted to the mid LAD. To greater than retrograde runoff is excellent. 2 small diffusely diseased diagonal branches fill retrograde. Graft 2: A patent vein graft is noted from the aorta to the major marginal branch of the circumflex. Just proximal to or at the anastomosis there is a 70% eccentric lesion. Runoff into a large caliber vessel is noted. Graft 3: A widely patent vein graft is noted from the aorta to the distal dominant right coronary system. Antegrade runoff is excellent. No distal lesions are noted. Left Ventricle: LV EF: 55-60 % LV Systolic: 137.0 mmHg LV Diastolic: 5.0 mmHg LV EDP: 12.0 mmHg There is normal wall motion as assessed by left ventriculogram. Lesion 1: Successful percutaneous interventional of the proximal obtuse marginal artery with a stenosis of 70 % and a THERESA Flow of 3. The lesion is non-high complexity, and there is no calcification present with no bifurcation. There was a reasonably focal, 70-80% distal vein graft lesion just at or proximal to the anastomosis. A wire was passed distally. The lesion was primarily stented with a 3.0 x 20 mm Synergy drug-eluting stent. The stented segment was postdilated with a 3.5 mm noncompliant balloon to high pressure. Postprocedure results were good with no residual stenosis and a visible stepup and stepdown. POST PCI stenosis was 0 % with a THERESA Flow of 3. Frailty Scale: Managing well. PROCEDURE STATUS: Elective. PROCEDURE DETAILS: The patient was informed of the risks, benefits, and complications of the procedure, including but not limited to cardiovascular , cerebrovascular accident, myocardial infarction, contrast induced nephropathy, arterial bleeding, and cardiac arrhythmias. The patient understood and agreed to the procedure. The patient was brought to the Cardiac Catheterization Laboratory in a fasting state. Prep The left radial region was prepped and draped in the usual sterile fashion. Local anesthesia was achieved with 1% lidocaine. Sheath removed and TR band placed. A small amount of blood was allowed to exit from the artery to flush it, and the TR Band was inflated to 10ml. Patient was transferred to the recovery room in good condition. Patient was transferred to room in good condition. Left radial access was obtained. Selective left and right coronary angiography were performed with diagnostic 5 Czech JL4 and JR4 catheters respectively. The grafts were imaged with a JR4 catheter and multipurpose catheter. Edge with a 4 Czech RIMA curve catheter. For intervention, a left bypass guide catheter was inserted into the graft. A wire was passed distally. Interventional details highlighted above. MODERATE SEDATION ATTESTATION: I supervised the moderate sedation throughout the entire procedure. The patient was independently monitored by an RN, using an automated blood pressure cuff, ECG, pulse oximetry, and capnography please see detailed nursing notes for documentation of vital signs during the procedure. Medications administered are detailed below in the medication section. The total procedure time is also detailed below in the total procedure time section. MEDICATIONS: Medication(1): Heparin 3000 unit(s) IVP. Medication(2): Heparin 46776 unit(s) IVP. Medication(3): Plavix 800 mg PO. Medication(4): Verapamil 4 mg IA. Medication(5): IV Bolus: .9 NaCl 30 ml total. Medication(6): {Narcotics/Sedation} Fentanyl 25 mcg IV. Medication(7): {Narcotics/Sedation} Versed 2 mg IV. Medication(8): . Medication(9): . Medication(10): . Medication(11): . Medication(12): . FLUORO TIME: Fluoro Time: 10.8 min. CONTRAST USED: Contrast total: 80 cc. SYSTEMIC HEMODYNAMICS: AO Systolic: 163 mmHg. AO Diastolic: 67 mmHg. AO Mean: 106 mmHg. COMPLICATIONS: none. BLOOD LOSS: Blood Loss: 2 mL. CONCLUSIONS: 1) Normal LV size and systolic function. The estimated ejection fraction is 55-60% 2) Severe [place] coronary disease with occlusion of the left main and a long 70% stenosis in the proximal to mid right coronary artery. 3) Prior bypass - Patent MARIE graft to the mid LAD - Patent vein graft to the major circumflex branch but with a tight distal graft stenosis of 70-80% - Patent vein graft to the distal dominant right coronary artery 4) Successful PCI with drug-eluting stent placement in the graft to the circumflex with good angiographic results and no residual stenosis. Electronically Signed By: Zuhair Canseco MD 2024-05-10 14:59:55 [employer] CC: Dr Alfredo James * Event Display: Telemetry, Paper Note * Jacinto Miller RN: PERFORM Event Display: Nursing Discharge Instructions - Text Authored Date: [id number] Nursing Discharge Instructions Entered On: 05/11/2024 09:25 [employer] Performed On: 05/11/2024 09:25 [employer] by Jacinto Miller RN Patient Discharge Location Discharge Location IP : Home Discharge Location IP Home : Yes Jacinto Miller RN - 05/11/2024 09:25 [employer] Home Discharge Instructions Patient Home Medications Returned : No home medications Nursing Unit Wound Measured at Discharge : N/A Jacinto Miller RN - 05/11/2024 09:25 [employer] * Jacinto Miller RN: PERFORM Event Display: Vital Signs at Discharge - Text Authored Date: [id number] Vital Signs at Discharge Entered On: 05/11/2024 09:25 [employer] Performed On: 05/11/2024 09:25 [employer] by Jacinto Miller RN Vital Signs Temperature Temporal Artery : 36.8 DegC(Converted to: 98.2 DegF) Heart Rate Monitored : 74 bpm Respiratory Rate : 18 br/min Systolic Blood Pressure : 133 mm Hg Diastolic Blood Pressure : 67 mm Hg Oxygen Therapy : Room air Oxygen Saturation : 95 % Jacinto Miller RN - 05/11/2024 09:25 [employer] * Yoselin Abbasi PHYSICAL THERAPIST: PERFORM Event Display: Physical Therapy Evaluation - Text Authored Date: [id number] Physical Therapy Evaluation Entered On: 05/11/2024 10:08 [employer] Performed On: 05/11/2024 10:05 [employer] by Yoselin Abbasi PHYSICAL THERAPIST Mobility Transfers : Sit to Stand, Independent Bed Mobility : Supine to sit, Independent Ambulation Level : Independent Gait Training Distance : 600 ft Ambulation Device Utilized : None Weight Bearing Status : Full weight bearing Yoselin Abbasi PHYSICAL THERAPIST - 05/11/2024 10:05 [employer] AM-PAC Basic Mobility AM-PAC Supine To Sidelying, No Rails : 4: None AM-PAC Supine To Sit, No Rails : 4: None AM-PAC Bed To Chair/WC Transfer : 4: None AM-PAC Standing From a Chair Using UEs : 4: None AM-PAC Walk in Hospital Room : 4: None AM-PAC Climbing 3-5 Steps with Railing : 4: None AM-PAC, Basic Mobility Raw Score : 24 Yoselin Abbasi PHYSICAL THERAPIST - 05/11/2024 10:05 [employer] DC Recommendations PT Post Acute Recommendation : Post Acute Skilled Physical Therapy Recommended Therapy Interdisciplinary Recommendations : Early Outpatient Cardiac Rehab Outpatient CR Location : Other: Pt not interested. Skilled Therapy OP CR : Yes Yoselin Abbasi PHYSICAL THERAPIST - 05/11/2024 10:05 [employer] Therapeutic Exercise Therapeutic Exercises Performed : General strengthening exercises PT Instruction in Exercise Program : Patient Therapeutic Exercise Comments : Instructed pt in active walking exercise program beginning at 10 minutes daily. Yoselin Abbsai PHYSICAL THERAPIST - 05/11/2024 10:05 [employer] Education Topics : Ambulation, Exercise program, Physical Therapy plan of care CR Education Topics : CR: Angina Signs & symptoms, CR: General Exercise Precautions, CR: Lifting/Isometric Precautions, CR: Meal precautions, CR: Outpatient Cardiac Rehab, CR: Post Cardiac Cath Precautions- Radial, CR: Rate of Perceived Exertion, CR: Weather Precautions Barriers to Learning : None evident Individuals Taught : Patient Teaching Method : Demonstration, Explanation, Printed materials Assessment/Outcome Evaluation : Returns demonstrations correctly, Verbalizes understanding Therapy Handouts Issued-PT : PT Introduction Therapy Handouts Issued - CR : Other: [facility] cardiac rehab pamphlet Yoselin Abbasi PHYSICAL THERAPIST - 05/11/2024 10:05 [employer] Assessment Mobility Recommendations for Nursing : Independent with mobility Rehabilitation Potential : Good Justification for Skilled PT Services : Patient would benefit from skilled PT for evaluation of cardiovascular response to increased functional activity, Discontinue PT Yoselin Abbasi PHYSICAL THERAPIST - 05/11/2024 10:05 [employer] PT Treatment Response : Pt is a 83 y/o male who was admitted s/p stent x1 on 05/10. Pt recieved in supine and agreeable to cardiac rehab education as well as acute PT evaluation. Pt was receptive to cardiac rehab education and demonstrated understanding of radial cath site precautions. Pt performedall mobility independently with no compaints of angina. Recommend EOPCR s/p discharge. Yoselin Abbasi PHYSICAL THERAPIST - 05/11/2024 10:08 [employer] Goals PT Bed Mobility Goal : Independent PT Bed Mobility Goal Status : Met and discontinued PT Transfer Goal : Independent PT Transfer Device Goal : None PT Transfer Goal Status : Met and discontinued PT Ambulation Goal : Independent PT Ambulation Device for Goal : None PT Ambulation Distance Goal : 600 ft PT Ambulation Goal Status : Met and discontinued Yoselin Abbasi PHYSICAL THERAPIST - 05/11/2024 10:08 [employer] PT Plan of Care PT Treatment Recommended : No PT Plan/Goals Reviewed w Pt/Caregiver : Yes Yoselin Abbasi PHYSICAL THERAPIST - 05/11/2024 10:08 [employer] Charges Physical Therapy Visit Status : Patient seen for treatment session this date. PT Evaluation Charge : I PT: Ambulation Status : Patient able to ambulate independently or modified independently Ambulation Status Determined : By observation PT Total Session Start Time : 05/11/2024 09:15 [employer] PT Total Session Stop Time : 05/11/2024 09:42 [employer] PT Total Tx Time : 27 minute(s) Therapeutic Exercise Units : 0 unit(s) Gait/Mobility Training Units : 1 unit(s) Yoselin Abbasi PHYSICAL THERAPIST - 05/11/2024 10:08 [employer] General Info Onset Date - PT : 05/10/2024 [employer] PT Start of Care Date : 05/11/2024 [employer] Admit Reason : stent x1 on 05/10 Pain Symptoms : No PMH : CAD, L TKR, HLD, HTN, obesity, CABG Orientation : Oriented x 4 Basic Command Following : Multi -Step Commands Therapy Services Safety/Judgement : Intact Session Conclusion : Patient left in chair with call light and phone within reach Yoselin Abbasi PHYSICAL THERAPIST - 05/11/2024 10:08 [employer] Living Situation Living Environment OT : Single level home Yoselin Abbasi PHYSICAL THERAPIST - 05/11/2024 10:08 [employer] Living Situation Stairs Inside Stairs Outside Stairs Number of Stairs : 0 2 Yoselin Abbasi PHYSICAL THERAPIST - 05/11/2024 10:08 [employer] Yoselin Abbasi PHYSICAL THERAPIST - 05/11/2024 10:08 [employer] Admit From IP Therapy : Home Home Assist IP Therapy : Independent Home Comments : Lives with in ranch style home with basement, bed/bath on main level. No DME. Very active. Yoselin Abbasi PHYSICAL THERAPIST - 05/11/2024 10:08 [employer] Functional Level Prior to This Admission Bed Mobility : Independent Transfers : Independent Ambulation : Independent Stairs : Independent Yoselin Abbasi PHYSICAL THERAPIST - 05/11/2024 10:08 [employer] Vital Signs Systolic Blood Pressure : 154 mm Hg (H) Diastolic Blood Pressure : 91 mm Hg (H) Peripheral Pulse Rate : 75 bpm Oxygen Saturation : 96 % Oxygen Flow Rate : 0 L/min Blood Pressure Position : Sitting Peak Systolic Blood Pressure : 176 mm Hg (H*) Peak Diastolic Blood Pressure : 95 mm Hg (H) Peak Peripheral Pulse Rate : 95 bpm Peak Oxygen Saturation : 95 % Peak Oxygen Flow Rate : 0 L/min Peak Blood Pressure Position : Sitting Post Systolic Blood Pressure : 173 mm Hg (H*) Post Diastolic Blood Pressure : 88 mm Hg Post Peripheral Pulse Rate : 74 bpm Post Oxygen Saturation : 97 % Post Oxygen Flow Rate : 0 L/min Post Blood Pressure Position : Sitting Yoselin Abbasi PHYSICAL THERAPIST - 05/11/2024 10:08 [employer] Musculoskeletal Range of Motion (ROM) : Right LE grossly WFL, Left LE grossly WFL Manual Muscle Testing (MMT) : Right LE grossly WFL, Left LE grossly WFL Yoselin Abbasi PHYSICAL THERAPIST - 05/11/2024 10:08 [employer] Neuro PT Balance Eval : No unsteadiness or LOB noted. Sensation Comments : No acute complaints of N/T Yoselin Abbasi PHYSICAL THERAPIST - 05/11/2024 10:08 DIRECTOR QUALITY SYSTEMS * Brunilda Stringer Clinical Staff Pharmacist: PERFORM Event Display: Post PCI Pharmacy Checklist - Text Authored Date: [id number] Post PCI Pharmacy Checklist Entered On: 05/11/2024 09:00 DIRECTOR QUALITY SYSTEMS Performed On: 05/11/2024 08:58 DIRECTOR QUALITY SYSTEMS by Brunilda Stringer Clinical Staff Pharmacist Post PCI Pharmacy Checklist Aspirin Prescribed : Yes Aspirin Regimen : aspirin 81 mg daily New Medication (Aspirin) : No New Med (P2Y12 Inhibitor) : Yes P2Y12 Inhibitor Prescribed : Yes P2Y12 Inhibitor Regimen : clopidogrel 75 mg daily Statin Regimen : Other: simvastatin 40mg daily Statin Prescribed : Yes New Medication (Statin) : No PCI Beta Sulaiman Prescribed : Yes Beta Sulaiman Regimen : Other: nadolol 20mg daily New Medication (Beta Sulaiman) : No PRABHU-inhibitor or ARB Prescribed : Yes New Medication (ARB) : No ARB Regimen : losartan 50 mg daily Discharge Rx Filled in Outpt Pharmacy : Yes Additional Pharmacy Comments : Reviewed medications with patient prior to discharge. Emphasized importance of compliance w/ medications s/p stenting. All questions were answered and he acknowledged his understanding. Patient Counseling Completed : Yes Brunilda Stringer Clinical Staff Pharmacist - 05/11/2024 08:58 DIRECTOR QUALITY SYSTEMS * Zuhair Canseco MD: SIGN Marta Owusu BLENDER HELPER: PERFORM, SIGN Marta Owusu BLENDER HELPER: SIGN, VERIFY Marta Owusu BLENDER HELPER: VERIFY Event Display: Pre-Procedure H&P Update Authored Date: Patient: LORA AL JR Age: 83 years Sex: Male : 1940 Associated Diagnoses: None Author: Marta Owusu NP H&P done within 1-30 days of admission The History and Physical was reviewed and the patient was examined No change has occured in the patient's condition since the History and Physical was completed Indication(s)for Procedure: New Onset Angina Chest Pain Symptom Assessment: Non-Anginal CP Heart Failure Type None Heart Failure Acuity None [place] Heart Classification None Stress or Imaging Studies Stress Nuclear Result of Stress Test High Risk Risk Factors and Co Morbidities Smoking: Former Hypertension Chronic Renal Insufficiency Dyslipidemia Prior Coronary Artery Surgery Physical Exam Heart Regular Rate & Rhythm Lungs Clear [Electronically Signed on 05/10/2024 12:23 PM DIRECTOR QUALITY SYSTEMS] Marta Owusu NP [Electronically Signed on 05/10/2024 12:44 PM DIRECTOR QUALITY SYSTEMS] Zuhair Canseco MD * Event Display: Authorization to Treat Authored Date: * Event Display: Authorization to Treat Authored Date: * Zuhair Canseco MD: PERFORM, SIGN, VERIFY Event Display: Moderate Sedation Assessment Authored Date: Patient: LORA AL JR Age: 83 years Sex: Male : 1940 Associated Diagnoses: None Author: Zuhair Canseco MD Physical Exam Vital Signs: Temperature 36.7 (12:00) Systolic Blood Pressure 171 (12:00) Diastolic Blood Pressure 87 (12:00) Pulse 81 (12:00) SpO2 No result Respiratory Rate No result . Heart: Regular Rate & Rhythm. Lungs: Clear to auscultation. Airway: Patent, No problems anticipated. Plan for Sedation: Medications: Fentanyl IV, Versed IV. Assessment Airway Assessment: History of difficult intubation: No. Inability to extend neck: No. Mouth opens less than 2 finger breadths: No. Diagnosis of sleep apnea: No. Less than 3 finger breadths to hyoid bone: No. Mallampati Score: 2 (soft palate, fauces, uvula visible). Ventilation: Significant COPD: No. Active asthma (at the time of the procedure): No. Obesity * (estimated > 40% over IBW): No. Edentulous: No. Facial hair/difficult mask seal: No. ASA Classification: ASA Class 3 - Patient with severe systemic disease. Attestations: I have explained the risks, benefits and alternatives related to anesthesia for this procedure to the patient/caregiver. They give their consent for anesthesia., History reviewed and nochanges noted., Pain management discussed with patient/caregiver.. [Electronically Signed on 05/10/2024 12:44 PM DIRECTOR QUALITY SYSTEMS] Zuhair Canseco MD * Deidre Hopkins RN: PERFORM Event Display: Adult Admission History-Director Of Recruiting/EP-Text Authored Date: Adult Admission History Director Of Recruiting/EP/Cardiology Services Entered On: 05/10/2024 12:05 DIRECTOR QUALITY SYSTEMS Performed On: 05/10/2024 11:57 DIRECTOR QUALITY SYSTEMS by Deidre Hopkins RN Preferred Language Preferred Language of Patient/Caregiver : Ivorian Preferred Mode of Communication : Verbal Deidre Hopkins RN - 05/10/2024 11:57 DIRECTOR QUALITY SYSTEMS Communication/Educational Needs Patient/Family Education Needs : Pain management, Plan of care Preferred Mode of Communication : Verbal KellieDeidre Chitra RN - 05/10/2024 11:57 DIRECTOR QUALITY SYSTEMS Problem List Adult Past Medical History Reviewed : Yes KellieColton waresophy Buenrostro RN - 05/10/2024 11:57 DIRECTOR QUALITY SYSTEMS (As Of: 05/10/2024 12:06 DIRECTOR QUALITY SYSTEMS) Problems(Active) Coronary artery disease (SNOMED CT :85453575 ) Name of Problem: Coronary artery disease ; Recorder: Lida Garnica RN; Confirmation: Confirmed ; Classification: Medical ; Code: [id number] ; Contributor System: [employer] ; Last Updated: 09/22/2020 08:12 CDT ; Life Cycle Date: 09/22/2020 ; Life Cycle Status: Active ; Responsible Provider: Lida Garnica RN; Vocabulary: SNOMED CT ; Comments: 09/22/2020 08:12 - Lida Garnica RN status post CABG surgery August 2001 [place] [address], after presenting with chest discomfort and an [...] clinically, electrocardiographically, and scintigraphically normal, LVEF 57%. Former smoker (SNOMED CT :14191337 ) Name of Problem: Former smoker ; Recorder: System, System; Confirmation: Confirmed ; Classification: Patient Stated ; Code: [id number] ; Last Updated: 06/16/2023 13:36 DIRECTOR QUALITY SYSTEMS ; Life Cycle Date: 06/16/2023; Life Cycle Status: Active ; Vocabulary: SNOMED CT H/O arthroscopic knee surgery (SNOMED CT :4677163299 ) Name of Problem: H/O arthroscopic knee surgery ; Recorder: Lida Garnica RN; Confirmation: Confirmed ; Classification: Medical ; Code: [id number] ; Contributor System: PowerChart ; Last Updated: 09/22/2020 08:14 CDT ; Life Cycle Date: 09/22/2020 ; Life Cycle Status: Active ; Responsible Provider: Lida Garnica RN; Vocabulary: SNOMED CT History of left knee replacement (SNOMED CT :0379344936 ) Name of Problem: History of left knee replacement ; Recorder: Lida Garnica RN; Confirmation: Confirmed ; Classification: Medical ; Code: [id number] ; Contributor System: PowerChart ; Last Updated: 09/22/2020 08:13 CDT ; Life Cycle Date: 09/22/2020 ; Life Cycle Status: Active ; Responsible Provider:Lida Garnica RN; Vocabulary: SNOMED CT ; Comments: 09/22/2020 08:13 - Lida Garnica RN in 2007 Hyperlipidemia (SNOMED CT :467276275 ) Name of Problem: Hyperlipidemia ; Recorder: Lida Garnica RN; Confirmation: Confirmed ; Classification: Medical ; Code: [id number] ; Contributor System: PowerChart ; Last Updated: 04/29/2021 09:34 CDT ; Life Cycle Date: 09/22/2020 ; Life Cycle Status: Active ; Responsible Provider: Lida Garnica RN; Vocabulary: SNOMED CT Hypertension (SNOMED CT :5830841739 ) Name of Problem: Hypertension ; Recorder: Uday Arrington M.D.; Confirmation: Confirmed ; Classification: Medical ; Code: [id number] ; Contributor System: PowerChart ; Last Updated: 10/28/2020 07:03 CDT ; Life Cycle Date: 10/28/2020 ; Life Cycle Status: Active ; Responsible Provider: Uday Arrington M.D.; Vocabulary: SNOMED CT Obesity (SNOMED CT :4301974785 ) Name of Problem: Obesity ; Recorder: Uday Arrington M.D.; Confirmation: Confirmed ; Classification: Medical ; Code: [id number] ; Contributor System: PowerChart ; Last Updated: 10/28/2020 07:03 CDT ; Life Cycle Date: 10/28/2020 ; Life Cycle Status: Active ; Responsible Provider: Uday Arrington M.D.; Vocabulary: SNOMED CT S/P arthroscopic surgery of right knee (SNOMED CT :8999229531 ) Name of Problem: S/P arthroscopic surgery of right knee ; Recorder: Lida Garnica RN; Confirmation: Confirmed ; Classification: Medical ; Code: [id number] ; Contributor System: PowerChart ; Last Updated: 09/22/2020 08:14 CDT ; Life Cycle Date: 09/22/2020 ; Life Cycle Status: Active ; Responsible Provider: Lida Garnica RN; Vocabulary: SNOMED CT ; Comments: 09/22/2020 08:14 - Lida Garnica RN Jul 2016 S/P CABG (coronary artery bypass graft) (SNOMED CT :1497254044 ) Name of Problem: S/P CABG (coronary artery bypass graft) ; Recorder: Lida Garnica RN; Confirmation: Confirmed ; Classification: Medical ; Code: [id number] ; Contributor System: [employer] ; Last Updated: 09/22/2020 08:12 CDT ; Life Cycle Date: 09/22/2020 ; Life Cycle Status: Active ; Responsible Provider: Lida Garnica RN; Vocabulary: SNOMED CT ; Comments: 09/22/2020 08:12 - Lida Garnica RN MARIE to LAD with distal endarterectomy and LAD vein patch angioplasty with anastomosis of the MARIE into the vein patch, saphenous vein graft to the circumferential marginal, and saphenous vein graft to the RCA Procedure History Procedure History Reviewed : Yes Deidre Hopkins RN - 05/10/2024 11:57 DIRECTOR QUALITY SYSTEMS - Procedure History (As Of: 05/10/2024 12:06 DIRECTOR QUALITY SYSTEMS) Procedure Dt/Tm: 2001 ; Anesthesia Minutes: 0 ; Procedure Name: CABG x 3 - Coronary artery bypass grafts x 3 ; Procedure Minutes: 0 Anesthesia Minutes: 0 ; Procedure Name: Knee replacement ; Procedure Minutes: 0 Anesthesia Minutes: 0 ; Procedure Name: Elbow joint operations ; Procedure Minutes: 0 Anesthesia Minutes: 0 ; Procedure Name: Amputation great toe ; Procedure Minutes: 0 ; Last ReviewedDt/Tm: 05/10/2024 12:01 DIRECTOR QUALITY SYSTEMS Allergies Allergies Verified? : Yes Deidre Hopkins RN - 05/10/2024 11:57 DIRECTOR QUALITY SYSTEMS (As Of: 05/10/2024 12:06 DIRECTOR QUALITY SYSTEMS) Allergies (Active) penicillins Estimated Onset Date: Unspecified ; Created By: Lida Garnica RN; Reaction Status: Active ; Category: Drug ; Substance: penicillins ; Type: Allergy ; Updated By: Lida Garnica RN; Reviewed Date: 04/17/2024 09:50 CDT Medication List Medications Verified? : Yes Kellie Deidre M RN - 05/10/2024 11:57 DIRECTOR QUALITY SYSTEMS Medication List (As Of: 05/10/2024 12:06 DIRECTOR QUALITY SYSTEMS) Normal Order aspirin 81 mg Chew tab : aspirin 81 mg Chew tab ; Status: Ordered ; Ordered As Mnemonic: aspirin ; Simple Display Line: 81mg, 1 tablet(s), Oral, Once ; Ordering Provider: Marta Owusu NP; Catalog Code: aspirin ; Order Dt/Tm: 05/10/2024 11:39 DIRECTOR QUALITY SYSTEMS Sodium Chloride 0.9% 1,000 mL : Sodium Chloride 0.9% 1,000 mL ; Status: Ordered ; Ordered As Mnemonic: NS 1,000 mL ; Simple Display Line: See Order Comments for Rate, IV Cont, Stop: 05/10/24 12:38:00 DIRECTOR QUALITY SYSTEMS ; Ordering Provider: Marta Owusu NP; Catalog Code: Sodium Chloride 0.9% ; Order Dt/Tm: 05/10/2024 11:39 DIRECTOR QUALITY SYSTEMS ; Comment: Pre cardiac cath hydration 3 mL/kg/hr over 1 hour Prescription/Discharge Order dapagliflozin : dapagliflozin ; Status: Completed ; Ordered As Mnemonic: Farxiga 10 mg oral tablet ; Simple Display Line: 10 mg, 1 tablet(s), Oral, daily, This medication can be used for both Heart Failure and Diabetes, please do not stop or substitute without talking to the prescribing physician., 90 tablet(s),6 Refill(s) ; Ordering Provider: Jonnathan James MD; Catalog Code: dapagliflozin ; Order Dt/Tm: 04/20/2024 08:04 CDT losartan : losartan ; Status: Completed ; Ordered As Mnemonic: losartan 50 mg oral tablet ; Simple Display Line: 50 mg, 1 tablet(s), Oral, daily, 90 tablet(s), 4 Refill(s) ; Ordering Provider: Dinorah Gabriel NP; Catalog Code: losartan ; Order Dt/Tm: 09/08/2023 08:23 CDT simvastatin : simvastatin ; Status: Completed ; Ordered As Mnemonic: simvastatin 40 mg oral tablet ; Simple Display Line: 40 mg, 1 tablet(s), Oral, qhs, 90 tablet(s), 4 Refill(s) ; Ordering Provider: Dinorah Gabriel NP; Catalog Code: simvastatin ; Order Dt/Tm: 09/05/2023 15:29 CDT nadolol : nadolol ; Status: Completed ; Ordered As Mnemonic: nadolol 20 mg oral tablet ; Simple Display Line: 20 mg, 1 tablet(s), Oral, daily, 90 tablet(s), 4 Refill(s) ; Ordering Provider: Jonnathan James; Catalog Code: nadolol ; Order Dt/Tm: 05/10/2023 12:05 DIRECTOR QUALITY SYSTEMS Home Meds dapagliflozin : dapagliflozin ; Status: Documented ; Ordered As Mnemonic: Farxiga 10 mg oral tablet ; Simple Display Line: 10 mg, 1 tablet(s), Oral, daily, This medication can be used for both Heart Failure and Diabetes, please do not stop or substitute without talking to the prescribing physician., 30 tablet(s), 0 Refill(s) ; Catalog Code: dapagliflozin ; Order Dt/Tm: 05/10/2024 11:54 DIRECTOR QUALITY SYSTEMS ; Comment: Not Started Yet Uod-Ytrxqzgnx-Mqm : Bix-Llnrtmzct-Udk ; Status: Documented ; Ordered As Mnemonic: LOSARTAN 50MG TABLETS ; Simple Display Line: TAKE 1 TABLET BY MOUTH DAILY ; Catalog Code: Iny-Vxaebudfm-Wlz ; Order Dt/Tm: 05/10/2024 11:54 DIRECTOR QUALITY SYSTEMS nadolol : nadolol ; Status: Documented ; Ordered As Mnemonic: nadolol 20 mg oral tablet ; Simple Display Line: 20 mg, 1 tablet(s), Oral, daily, 30 tablet(s), 0 Refill(s) ; Catalog Code: nadolol ; Order Dt/Tm: 05/10/2024 11:54 DIRECTOR QUALITY SYSTEMS simvastatin : simvastatin ; Status: Documented ; Ordered As Mnemonic: simvastatin 40 mg oral tablet ; Simple Display Line: 40 mg, 1 tablet(s), Oral, qhs, 30 tablet(s), 0 Refill(s) ; Catalog Code: simvastatin ; Order Dt/Tm: 05/10/2024 11:54 DIRECTOR QUALITY SYSTEMS cetirizine : cetirizine ; Status: Documented ; Ordered As Mnemonic: ZyrTEC ; Simple Display Line: 10 mg, Oral,daily, 0 Refill(s) ; Catalog Code: cetirizine ; Order Dt/Tm: 11/16/2022 11:48 CDT acetaminophen : acetaminophen ; Status: Documented ; Ordered As Mnemonic: Tylenol 325 mg oral tablet ; Simple Display Line: 650 mg, 2 tablet(s), Oral, [id number], PRN: pain, mild, 0 Refill(s) ; Ordering Provider: Zuhair Canseco MD; Catalog Code: acetaminophen ; Order Dt/Tm: 11/07/2020 10:02 CDT nitroglycerin : nitroglycerin ; Status: Documented ; Ordered As Mnemonic: nitroglycerin 0.4 mg sublingual tablet ; Simple Display Line: 0.4 mg, 1 tablet(s), Sublingual, q5min, PRN: chest pain, 0 Refill(s) ; Ordering Provider: Zuhair Canseco MD; Catalog Code: nitroglycerin ; Order Dt/Tm: 11/07/2020 10:02 CDT aspirin : aspirin ; Status: Documented ; Ordered As Mnemonic: aspirin 81 mg oral enteric coated tablet ; Simple Display Line: 81 mg, 1 tablet(s), Oral, daily, 0 Refill(s) ; Catalog Code: aspirin ; Order Dt/Tm: 11/07/2020 08:50 CDT Pain Assessment Pain Scale Used : Intensity Scale (1-10) Primary Pain Intensity : 0 = No pain Acceptable Intensity : 0 Deidre Hopkins RN - 05/10/2024 11:57 DIRECTOR QUALITY SYSTEMS Functional Sensory Devices Needed : Glasses Sensory Devices at Bedside : Glasses Sleep Apnea Risk: Snores Loudly : No Medical Devices : None Radiology Testing Barriers/Precautions : Metal plates, pins, rods or screws Medical Devices/Radiology Barriers Verified : Yes Living Situation : Home independently Anticipated Discharge Needs : Home independently Deidre Hpokins RN - 05/10/2024 11:57 DIRECTOR QUALITY SYSTEMS Social Habits Social History Reviewed : Yes Deidre Hopkins RN - 05/10/2024 11:57 DIRECTOR QUALITY SYSTEMS Social History (As Of: 05/10/2024 12:06 DIRECTOR QUALITY SYSTEMS) Tobacco: Former smoker, Smokeless Tobacco use: Never. N/A Cessation Counseling. Comments: 09/22/2020 08:20 -Lida Garnica RN: Former Smoker; Quit 06/27/1993. Smokeless Tobacco: Never used smokeless tobacco. Comments: tobacco use d/c in approximately 1993, after a 20 pack year history. (Last Updated: 06/16/2023 13:36 DIRECTOR QUALITY SYSTEMS by Alessandra Mello MA) Alcohol: Current some day alcohol user, 1-2 times per year (Last Updated: 04/17/2024 09:52 CDT by Jasmina De Leon MA) Substance Abuse: Never drug user (Last Updated: 06/16/2023 13:36 DIRECTOR QUALITY SYSTEMS by Alessandra Mello MA) Psychosocial Domestic Violence Screening : Patient does not have domestic violence concerns Current Danger to Self or Others : No Current treatment for Cancer on 7700 : No Little interest/pleasure in doing things? : No Feeling down, depressed, or hopeless? : No Have you wished you were ? : No Had thoughts of killing yourself? : No Ever attempted to kill yourself? : No Deidre Hopkins RN - 05/10/2024 11:57 DIRECTOR QUALITY SYSTEMS Advance Directive Advanced Directives : Yes Advance Directive Type : Living will, Medical durable power of insurance attorney Medical Power of Mechanical Commissioning Engineer Name : [place] Advance Directive Location : Unable to obtain copy Deidre Hopkins RN - 05/10/2024 11:57 DIRECTOR QUALITY SYSTEMS TB Screen Previous Pneumococcal Vaccine? : Yes Flu Vaccine This Season? : Yes Deidre Hopkins RN - 05/10/2024 11:57 DIRECTOR QUALITY SYSTEMS TB Risk Factors Grid Alcohol and Drug Use : No Employee of Institutional Living Environment : No Health Care Employee : No History of Exposure to TB : No History of Positive Chest X-Ray for TB : No History of Positive TB Skin Test : No Homeless : No Known Immunosuppression : No Recent Immigrant : No Resident of Institutional Living Environment : No Deidre Hopkins RN - 05/10/2024 11:57 DIRECTOR QUALITY SYSTEMS TB Symptoms Grid Bloody Sputum : No Fatigue : No Fever : No Loss of Appetite : No Night Sweats : No Persistent Cough > 3 Weeks : No Weight Loss : No Deidre Hopkins RN - 05/10/2024 11:57 DIRECTOR QUALITY SYSTEMS Novel Coronavirus Assessment Novel Coronavirus Current Fever : No Novel Coronavirus Exposed COVID 14 days : No Deidre Hopkins RN - 05/10/2024 11:57 DIRECTOR QUALITY SYSTEMS EKG study * Event Display: EKG Regular * Event Display: EKG Regular Authored Date: Vent Rate: 74 bpm RR Interval: 803 msec CO Interval: 195 msec QRS Duration: 137 msec QT Interval: 426 msec QTC Interval: 454 msec P-R-T [place]: 35 - -56 - 69 degrees IMPRESSION: SINUS RHYTHM WITH OCCASIONAL VENTRICULAR PREMATURE COMPLEXES LEFT AXIS DEVIATION INTRAVENTRICULAR CONDUCTION DELAY Poor R wave progression ABNORMAL ECG No prior tracings for comparison Electronically Signed By: Marcelo Bautista MD [facility] * Event Display: EKG Report Nurse Progress note * Jacinto Miller RN: PERFORM Event Display: Progress Note-Nurse Authored Date: Patient educated on discharge instructions and discharge medications. Vital signs stable and IV removed. Patient escorted to private vehicle to home with physician follow up. Hospital Summary note * Jacinto Miller RN: PERFORM Event Display: Inpatient Patient Summary Authored Date: Thank you for choosing [facility] for your health care. Routine checkups and screenings are an important part of staying healthy. [facility] entire network of care is open, safe and ready to provide you with the very best patient-focused care. SERVANDO CHAVEZ LORA Rayne :1940 Visit Date:05/10/2024 Inpatient Discharge Instructions [facility] would like to thank you for allowing us to assist you with the healthcare needs. The following information includes patient education materials and information regarding your injury/illness. Our entire staff strives to provide a very good experience for our patients and their families. You may receive, by mail, a survey about your experience with us at [facility].PLEASE ENSURE YOU FOLLOW-UP PER THE INSTRUCTIONS BELOW. Location Information ?[facility]?[address] ?? Your Care Team Admitting Physician - Zuhair Canseco MD Attending Physician - Zuhair Canseco MD Primary Care Physician - Joe Colon M.D. Referring Physician - Jonnathan James MD Reason for Your Visit Atherosclerotic heart disease of [place] coronary artery without angina pectoris Your Diagnosis CAD (coronary artery disease) Discharge Orders Discharge Instructions ?Diet Instructions post Discharge?Diet post Discharge?No Restrictions ?Diet Instructions post Discharge?Special Instructions?Resume previous diet ?Discharge Activity Restrictions?Activity Level post Discharge?Other See Instructions ?Discharge Activity Restrictions?Special Instructions?Limit activity for 3 days ?Discharge Patient to?Discharge Disposition?Home with Physician Follow-up ?Follow-up instructions post Discharge?Follow-up Instuctions post Discharge?Follow up with Dr. James in 1-2 weeks. ?Follow-up instructions post Discharge?Follow-up Instuctions post Discharge?call the office for follow up ?Follow-up instructions post Discharge?Special Instructions??plan on seeing referring physician in 1-2 weeks ?Special Discharge Instructions?Special Instructions?May Shower ?Special Discharge Instructions?Stop Date/Time?05/11/24 8:45:00 DIRECTOR QUALITY SYSTEMS ?Special Discharge Instructions?Special Instructions?May Remove Dressing ?Special Discharge Instructions?Stop Date/Time?05/11/24 8:45:00 DIRECTOR QUALITY SYSTEMS ?Special Discharge Instructions?Special Instructions?Due to medications you have received, you should not drive a vehicle or operatemachinery for 24 hours. ?Special Discharge Instructions?Stop Date/Time?05/11/24 8:45:00 DIRECTOR QUALITY SYSTEMS ?Special Discharge Instructions?Special Instructions?Have a responsible libertarian stay with you for the first 24 hours following your procedure to assist you as needed ?Special Discharge Instructions?Stop Date/Time?05/11/24 8:45:00 DIRECTOR QUALITY SYSTEMS ?Special Discharge Instructions?Special Instructions?Okay toDischarge once he receives his plavix ?Special Discharge Instructions?Stop Date/Time?05/11/24 8:45:00 DIRECTOR QUALITY SYSTEMS ?Contact your Surgeon?Follow-up Instuctions post Discharge?Contact your surgeon for pain or other questions/concerns. ?? Instructions From Your Doctor Nursing Discharge Instructions Nursing Unit Patient Home Medications Returned: No home medications No qualifying data available. Tests Pending Procedures History ???CABG x 3 - Coronary artery bypass grafts x 3 (2001)???Amputation great toe???Elbow joint operations???Knee replacement Discharge Vitals Temperature Temporal Artery: 36.8 DegC (05/11/24 09:25:00) Heart Rate Monitored: 74 bpm (05/11/24 09:25:00) Respiratory Rate: 18 br/min (05/11/24 09:25:00) Systolic Blood Pressure: 133 mm Hg (05/11/24 09:25:00) Diastolic Blood Pressure: 67 mm Hg (05/11/24 09:25:00) Oxygen Saturation: 95 % (05/11/24 09:25:00) What to do next Scheduled Follow-Up Appointments 2024 10:00 AM CDT ?? With: Jonnathan James MD Where: [facility] You Need to Schedule the Following Appointments Follow Up with??Zuhair Canseco When?? Why: Call for follow up appointment Where: [address] [place] [phone] [facility] (1) The Following Equipment/Services/Treatments Have Been Arranged For You No qualifying data available. Medications [facility] provided you with a completed list of medications post discharge, share the list of your current medications with your primary care physician; update the information when medications are discontinued, doses are changed, or new medications (including over the counter products) are added; and carry medication information at all times in the event of emergency situations. What How Much When Instructions Side Effects Next Dose New clopidogrel (Plavix 75 mg oral tablet) 1 tablet(s) By mouth Daily Pickup at [facility] New clopidogrel (Plavix 75 mg oral tablet) 1 tablet(s) By mouth Daily Refills: 4 do not fill for refills ?? Pickup at [facility] [employer] #[id number] Unchanged acetaminophen (Tylenol 325 mg oral tablet) 2 tablet(s) By mouth Every 6 hours as needed for pain, mild Unchanged aspirin (aspirin 81 mg oral enteric coated tablet) 1 tablet(s) By mouth Daily Unchanged cetirizine (ZyrTEC) 10 Milligram By mouth Daily Unchanged dapagliflozin (Farxiga 10 mg oral tablet) 1 tablet(s) By mouth Daily This medication can be used for both Heart Failure and Diabetes, please do not stop or substitute without talking to the prescribing physician. ?? Not Started Yet Unchanged nadolol (nadolol 20 mg oral tablet) 1 tablet(s) By mouth Daily Unchanged nitroglycerin (nitroglycerin 0.4 mg sublingual tablet) 1 tablet(s) Sublingual Every 5 minutes as needed for chest pain Unchanged Zqt-Aumjqjwmp-Ttt (LOSARTAN 50MG TABLETS) TAKE 1 TABLET BY MOUTH DAILY ?? Unchanged simvastatin (simvastatin 40 mg oral tablet) 1 tablet(s) By mouth Every evening at bedtime Pharmacy Information [facility]: [address] [facility] [address] [place], [place] [id number] [id number]: [address] [place], [place] [phone] Immunizations This Visit Allergies penicillins Problems Ongoing Coronary artery disease H/O arthroscopic knee surgery History of left knee replacement Hyperlipidemia Hypertension Obesity S/P arthroscopic surgery of right knee S/P CABG (coronary artery bypass graft) PatientStated Former smoker Historical No qualifying data Medication Information ?? Education Materials Clopidogrel Oral Tablet Brands: Plavix Uses This medicine is used for the following purposes: ???prevent blood clots ???prevent stroke ???prevent heart attack Instructions This medicine may be taken with or without food. This medicine will work best if you take it at about the same time every day. Keep the medicine at room temperature. Avoid heat and direct light. It is important that you keep taking each dose of this medicine on time even if you are feeling well. If you forget to take a dose on time, take it as soon as you remember. If it is almost time for thenext dose, do not take the missed dose. Return to your normal schedule. Do not take 2 doses at one time. Drug interactions can change how medicines work or increase risk for side effects. Tell your healthcare providers about all medicines taken. Include prescription and ceca-vbu-fcsuyhp medicines, vitamins, and herbal medicines. Speak with your doctor or pharmacist before starting or stopping any medicine. Cautions Tell your doctor and pharmacist if you ever had an allergic reaction to a medicine. Do not use the medication any more than instructed. Speak with your doctor before taking any medicine with aspirin. Contact your doctor if you notice a change in the amount or darkening of your urine. Tell the doctor or pharmacist if you are , planning to be , or . Call your doctor right away if you notice any unusual bleeding or bruising. Do not share this medicine with anyone who has not been prescribed this medicine. Some patients have serious side effects from this medicine. Ask your pharmacist to show you the information from the Food and Drug Administration (FDA) and discuss it with you. Side Effects The following is a list of some common side effects from this medicine. Please speak with your doctor about what you should do if you experience these or other side effects. ???itching Call your doctor or get medical help right away if you notice any of these more serious side effects: ???loss of balance ???bleeding or bruising ???chest pain ???coughing up blood or vomit that looks like coffee grounds ???fever ???severe or persistent headache ???fast or irregular heart beats ???pale or blue skin, lips or fingernails ???bloody or dark, tarry stools ???symptoms of stroke (such as one-sided weakness, slurred speech, confusion) ???swelling in the neck or throat ???unusual or unexplained tiredness or weakness ???blood in urine ???yellowing of eyes or skin A few people may have an allergic reaction to this medicine. Symptoms can include difficulty breathing, skin rash, itching, swelling, or severe dizziness. If you notice any of these symptoms, seek medical help quickly. Extra Please speak with your doctor, nurse, or pharmacist if you have any questions about this medicine. ?? [email or web address] IMPORTANT NOTE: This document tells you briefly how to take your medicine, but it does not tell youall there is to know about it. Your doctor or pharmacist may give you other documents about your medicine. Please talk to them if you have any questions. Always follow their advice. There is a more complete description of this medicine available in Ivorian. Scan this code on your smartphone or tablet or use the web address below. You can also ask your pharmacist for a printout. If you have any questions, please ask your pharmacist. The display and use of this drug information is subject to Terms of Use. Copyright(c) 2023 [employer]. ? [employer]. All rights reserved. This information is not intended as a substitute for professional medical care. Always follow your healthcare professional's instructions. Patient Portal Information Appiny is a secure online tool where you can access your personal health records, test results, visit summaries or request follow up appointments. The portal can be accessed on the hospital website [email or web address] where you can self-enroll if you did not do so on registration. If you need assistance logging in, please call . For questions regarding medications or other healthconcerns after discharge, please contact your physician???s office. [facility]:[phone] Location:[facility] Registration Date and Time:05/10/2024 11:25 DIRECTOR QUALITY SYSTEMS Primary Care Physician: Joe Colon M.D., Attending Physician: Zuhair Canseco MD, Designated Caregiver: I have received the above patient education materials/instructions and have verbalized understanding. Patient/Press Hand Signature: Date/Time: Designated Caregiver Signature: Date/Time: Unable to contact Designated Caregiver upon discharge. Provider Signature: Date/Time: Final Medication List We have provided this final list of active medications as a courtesy so that you can easily update your home records and provide to your physician(s). These are the only medications that you should be taking. Please review carefully and contact your doctor prior to taking any medications NOT on this list. New clopidogrel (Plavix 75 mg oral tablet)1 tablet(s) By mouth daily. Refills: 0. clopidogrel (Plavix 75 mg oral tablet)1 tablet(s) By mouth daily. do not fill for refills. Refills:4. Unchanged acetaminophen (Tylenol 325 mg oral tablet)2 tablet(s) By mouth every 6 hours as needed pain, mild. aspirin (aspirin 81 mg oral enteric coated tablet)1 tablet(s) By mouth daily. cetirizine (ZyrTEC)10 Milligram By mouth daily. dapagliflozin (Farxiga 10 mg oral tablet)1 tablet(s) By mouth daily. This medication can be used for both Heart Failure and Diabetes, please do not stop or substitute without talking to the prescribing physician.. nadolol (nadolol 20 mg oral tablet)1 tablet(s) By mouth daily. nitroglycerin (nitroglycerin 0.4 mg sublingual tablet)1 tablet(s) Sublingual every 5 minutes as needed chest pain. Bdz-Fgdwczoqb-Eva (LOSARTAN 50MG TABLETS)TAKE 1 TABLET BY MOUTH DAILY. simvastatin (simvastatin 40 mg oral tablet)1 tablet(s) By mouth every evening at bedtime. Patient Care team information Care Team Personnel Name: Joe Colon M.D. Position: Randy[facility] FAX ONLY - MD NOT ON STAFF Member Role: Primary Care Physician Address: [address] [place] [address]- Name: Jonnathan James MD Position: Physician - Cardiology Member Role: Framing Consultant Address: [address] [place] [address] Name: Jaun Payton MD Position: Physician - Cardiology Member Role: Framing Consultant Address: [address] [place] [address] Name: Zuhair Canseco MD Position: Physician - Cardiology Member Role: Specialist Physician Address: [address] [place] [address] Name: Uday Arrington M.D. Member Role: Specialist Physician Address: [address] [place] [address] Name: Jonnathan James MD Position: Physician - Cardiology Med Service: Watchmaking Teacher Hardwood Floor Installation Helper Role: Referring Physician Address: [address] [place] [address] Name: Zuhair Canseco MD Position: Physician - Cardiology Med Service: Watchmaking Teacher Hardwood Floor Installation Helper Role: Attending Physician Address: [address] [place] [address] Care Team Related Persons Name: MAGALIS AL Name: MAGALIS AL Insurance Providers Guarantor name: LORA AL Health Plan Information #: 1 Payer: Medicare Member Number: [id number] Policy Number: NA Health Plan Information #: 2 Payer: Medicare Supplement Member Number: [id number] Policy Number: NA
--- OUTSIDE RECORDS SUMMARY | 2024-06-08 12:21 | XMS_ITS | Continuity of Care Document ---
Author Organization [facility] Address [address] [phone] Care Team Providers Care Sorter [employer] Name Role Phone Joe Colon Primary Care Physician Encounter [facility] Financial Number [id number] Date(s): 04/17/24 - 04/17/24 [facility] [address] [phone] Encounter Diagnosis Coronary artery disease(Discharge Diagnosis) - 04/12/24 Hyperlipidemia(Discharge Diagnosis) - 04/12/24 Hypertension(Discharge Diagnosis) - 04/12/24 S/P CABG (coronary artery bypass graft)(Discharge Diagnosis) - 04/12/24 Discharge Disposition: Home or Self Care Attending Physician: Jonnathan James MD Referring Physician: Jonnathan James MD Allergies, Adverse Reactions, Alerts Substance Criticality Severity Reaction Reaction Severity Status penicillins Active Assessment and Plan Future Appointments Appointment Date:04/19/2024 03:00:00 PM Scheduled Provider: Location:[facility] Appointment Type:[facility] Echo Complete Appointment Date:04/30/2024 02:45:00 PM Scheduled Provider: Location:[facility] DOC PET SCAN Appointment Type:MI PET MYOCARDIAL PERFUSION MULTI Appointment Date:10/18/2024 10:00:00 AM Scheduled Provider:Jonnathan James MD Location:[facility] Appointment Type:[facility] Follow Up Medications aspirin 81 mg oral enteric coated tablet 81 mg, 1 tablet(s), Oral, daily, Tab EC, 0 Start Date: 11/07/20 Status: Ordered losartan 50 mg oral tablet 50 mg, 1 tablet(s), Oral, daily, 90 tablet(s), Tablet(s), 4, 4, Route to Pharmacy Electronically, [id number], [id number], 180, cm, 06/16/23 13:36: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, Height, 113.4, kg, 06/16/23 13:36: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, Weight Start Date: 09/08/23 Status: Ordered nadolol 20 mg oral tablet 20 mg, 1 tablet(s), Oral, daily, 90 tablet(s), Tablet(s), 4, 4, Route to Pharmacy Electronically, [id number], [id number], 180, cm, 11/16/22 11:46:00 CDT, Height, 113.63, kg, 11/16/22 11:46:00 CDT, Weight Start Date: 05/10/23 Status: Ordered nitroglycerin 0.4 mg sublingual tablet 0.4 mg, 1 tablet(s), Sublingual, q5min, PRN, Tablet(s), 0, chest pain Start Date: 11/07/20 Status: Ordered simvastatin 40 mg oral tablet 40 mg, 1 tablet(s), Oral, qhs, 90 tablet(s), Tablet(s), 4, 4, Route to Pharmacy Electronically, [id number], [id number], 180, cm, 06/16/23 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 Note * Event Display: Consent/Registration Forms * Event Display: Consent/Registration Forms Cardiology Outpatient Note * Jonnathan James MD: PERFORM Event Display: Cardiology Office/Clinic Note Authored Date: [id number] Patient Information Name:LORA AL Address: [address] [place] [phone] Sex:Male Date of :1940 Emergency Contact:GUSTABO AL Location:[facility] Registration Date and Time:04/17/2024 09:00 CDT Primary Care Physician: Joe Colon M.D., Attending Physician: Jonnathan James MD, Chief Complaint 9 month f/u for CAD & other diagnoses History of Present Illness Lora Al Jr. is an 83 year old male who presents for cardiology follow-up in the setting of coronary artery disease, status post CABG surgery 2001, hypertension, hyperlipidemia, and obesity. ?? Stress today as he was dealing with traffic and then got a flat tire on the way to the clinic. ?? Total of 420 min of exercise each week. ?? Occasionally has dyspnea on exertion. Will have??some discomfort in throat??and lightheadedness.?? Symptoms resolved with rest. ?? No chest pain,??orthopnea, PND, LE swelling. ?? BP at home 90s-140s/50s-80. ?? Lipids 05-13-16: chol 162, LDL 87, [...] status post CABG surgery August 2001 [place] [address], afterpresenting with chest discomfort and an abnormal [...] pack year history.?? 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 EXAMINATION: GENERAL: white male [...] skin normal, ROM normal. ?? ASSESSMENT: 1.?? Dyspnea on exertion-ischemic evaluation??as below.?? Will also obtain NT proBNP and TTE.?? Faint crackles in the lung bases bilaterally today.?? Possible HFpEF.?? Plan to start Farxiga??if evaluation confirms diagnosis. 2.?Coronary artery disease, status post CABG surgery 09-14-01. ??Dyspnea on exertion??with associated throat discomfort??is possible anginal equivalent. ??Lexiscan MPI??PET??and TTE now. ??Continue aspirin, statin and beta-juan j. 3.?Hypertension - controlled, based on home readings 4.?Hyperlipidemia - maintained on a statin, LDL at goal of less than 70 5.?Obesity -?? weight loss and continued exercise encouraged ?? Longitudinal care is provided today for patient's serious ongoing issues.?This office is the continuing focal point for these health services, providing continuity of care for multiple complex issues.?See Summary/Plan section.?Follow up visit arranged. ?Return to clinic in??6 months. Vitals and Measurements Vital Signs Height: 180.5 cm Height Inches Conversion: 71.1 Weight: 110 kg Weight in Pounds (kg conversion): 242 Body Surface Area: 2.3485 m2 Body Mass Index: 33.76 kg/m2 Systolic Blood Pressure:??152 mm Hg??High Diastolic Blood Pressure: 80 mm Hg Peripheral Pulse Rate: 81 bpm Oxygen Saturation: 96 % Medications aspirin 81 mg oral enteric coated tablet, 81 mg= 1 tablet(s), Oral, daily losartan 50 mg oral tablet, 50 mg= 1 tablet(s), Oral, daily, 4 refills nadolol 20 mg oral tablet, 20 mg= 1 tablet(s), Oral, daily, 4 refills nitroglycerin 0.4 mg sublingual tablet, 0.4 mg= 1 tablet(s), Sublingual, q5min, PRN simvastatin 40 mg oral tablet, 40 mg= 1 tablet(s), Oral, qhs, 4 refills Tylenol 325 mg oral tablet, 650 mg= 2 tablet(s), Oral, q9ugasi, PRN ZyrTEC, 10 mg, Oral, daily Allergies penicillins Voice to Text Technology Disclaimer This note may contain text inserted via Dragon or other voice to text assistive technology and cfd engineer, variances may occur. Outpatient Summary note * Yuridia Arita Precert: PERFORM Event Display: Ambulatory Patient Summary Authored Date: [id number] LORA AL :1940 Visit Date:04/17/2024 [facility] Visit Instructions Your Diagnosis Coronary artery disease Hyperlipidemia Hypertension S/P CABG (coronary artery bypass graft) Your Care Team Attending Physician - Jonnathan James MD Primary Care Physician - Joe Colon M.D. Referring Physician - Jonnathan James MD Procedure History ???CABG x 3 - Coronary artery bypass grafts x 3 (2001)???Elbow joint operations???Knee replacement Discharge Vitals Vital Signs Height: 180.5 cm Height Inches Conversion: 71.1 Weight: 110 kg Weight in Pounds (kg conversion): 242 Body Surface Area: 2.3485 m2 Body Mass Index: 33.76 kg/m2 Systolic Blood Pressure:??152 mm Hg??High Diastolic Blood Pressure: 80 mm Hg Peripheral Pulse Rate: 81 bpm Oxygen Saturation: 96 % What to do next Scheduled Follow-Up Appointments 2023 3:00 PM CDT ?? With: Where: [facility] 2024 10:00 AM CDT ?? With: Jonnathan James MD Where: [facility] You Need to Complete the Following PET CARDIAC STRESS MPI W/IMAGING LEXISCAN per protocol, shortness of breath, 04/17/24, ROUTINE, [facility], [facility], Coronary artery disease Hyperlipidemia Hypertension S/P CABG (coronary artery bypass graft), Not Required, Future Order, Electronic, RADIOLOGY Referral Information Referral Information ? No Results Found ? Medications What How Much When Instructions Changed simvastatin (simvastatin 40 mg oral tablet) 1 tablet(s) By mouth Every evening at bedtime Unchanged acetaminophen (Tylenol 325 mg oral tablet) 2 tablet(s) By mouth Every 6 hours as needed for pain, mild Unchanged aspirin (aspirin 81 mg oral enteric coated tablet) 1 tablet(s) By mouth Daily Unchanged cetirizine (ZyrTEC) 10 Milligram By mouth Daily Unchanged losartan (losartan 50 mg oral tablet) 1 tablet(s) By mouth Daily Unchanged nadolol (nadolol 20 mg oral tablet) 1 tablet(s) By mouth Daily Unchanged nitroglycerin (nitroglycerin 0.4 mg sublingual tablet) 1 tablet(s) Sublingual Every 5 minutes as needed for chest pain Medications and Immunizations Administered Medication Administrations ? [...] other voice to text assistive technology and cfd engineer, variances may occur. Patient Care team information Care Team Personnel Name: Joe Colon M.D. Position: ZZ FAX ONLY - MD NOT ON STAFF Member Role: Primary Care Physician Address: Address: [address] [place] [address]- Name: Jonnathan James MD Position: Physician - Cardiology Member Role: Director Of Personnel Address: Address: [address] [place] [address] Name: Zuhair Canseco MD Position: Physician - Cardiology Member Role: Specialist Physician Address: Address: [address] [place] [address] Name: Uday Arrington M.D. Member Role: Specialist Physician Address: Address: [address] [place] [address] Name: Jonnathan James MD Position: Physician - Cardiology Med Service: Home Health Provider Sorter U[employer]olstery Parts Role: Attending Physician Address: Address: [address] [place] [address] Care Team Related Persons Name: GUSTABO AL Name: GUSTABO AL
== END 2024-06-08 09:29 | disposition home or self-care (01) ==
PROVIDERS: PCP Family Medicine; Visit Provider Family Medicine
DX: R73.01 Impaired fasting glucose (principal); I11.9 Hypertensive heart disease without heart failure
CPT/HCPCS: 36415; 80053; 83036

== ENCOUNTER 2024-10-15 09:12 | Emergency (ER) | payer MEDICARE, SELFPAY ==
[2024-10-15 09:19] VITALS: BP 117/62; PULSE 78; RESP 16; TEMP 35.7; O2SAT 99
--- NOTE | 2024-10-15 09:25 | ED.URI ---
HPI - URI/Sore Throat General Chief Complaint: Upper Respiratory Infection Stated Complaint: runny nose Time Seen by Provider: 10/15/24 09:25 Source: patient and RN notes reviewed Mode of arrival: ambulatory Limitations: no limitations History of Present Illness HPI Narrative: 84-year-old male presents Express Care complaining of congestion, runny nose, dry cough for 10 days. Patient says the symptoms are not getting any better. Patient said the last 3 days he was using Benadryl said it helps with some of the symptoms made him too drowsy. Patient denies any sore throat, chest pain, shortness of breath, fevers, body aches, chills. Significant past medical history includes coronary artery disease and hypertension. Related Data Home Medications ?Medication ?Instructions ?Recorded ?Confirmed ?Last Taken ?Type aspirin 81 mg tablet,delayed 81 mg PO DAILY 06/08/19 10/15/24 08/18/22 History release nadolol 20 mg tablet 20 mg PO DAILY 06/08/19 10/15/24 08/26/22 07:00 History atorvastatin 40 mg tablet (Lipitor) 40 mg PO DAILY 07/18/24 10/15/24 Unknown History clopidogrel 75 mg tablet (Plavix) 75 mg PO DAILY 07/18/24 10/15/24 Unknown History dapagliflozin propanediol 10 mg 10 mg PO DAILY 07/18/24 10/15/24 Unknown History tablet (Farxiga) Allergies Allergy/AdvReac Type Severity Reaction Status Date / Time Penicillins Allergy Mild Rash Verified 10/15/24 09:20 Review of Systems Review of Systems: CONSTITUTIONAL: Denies fever, chills, or sweats. EYES: Denies visual changes, redness, or discharge. ENT: Positive for rhinorrhea, congestion. Negative for sore throat, or otalgia. CARDIOVASCULAR: Denies chest pain, palpitations, or edema. RESPIRATORY: Positive for dry cough. Negative for dyspnea. GASTROINTESTINAL: Denies abdominal pain, nausea, vomiting, or diarrhea. GENITOURINARY: Denies dysuria or hematuria. SKIN: Denies rash or itching. MUSCULOSKELETAL: Denies back pain, joint pain, or myalgia. NEUROLOGIC: Denies headache, numbness, or weakness. PSYCHIATRIC: Denies anxiety or depression. All other systems reviewed are negative, except as documented in HPI. [facility]LY [facility] Past Medical History Medical History History of COVID-19 IFG (impaired fasting glucose) HLD (hyperlipidemia) CAD (coronary artery disease) Hypertension with heart disease Surgical History Surgical History History of coronary artery stent placement Status post arthroscopy of right knee Status post left foot surgery Status post left knee replacement S/P CABG (coronary artery bypass graft) Family History Family History Father Lung cancer Mother AAA (abdominal aortic aneurysm) Father Family history of lung cancer Social History Social History Social History: Smoking packs per day: 3 Smoking cigarettes per day: 60.0 Years smoked: 25 Smoking pack-years: 75.00 Smoking status: Former smoker Tobacco type: cigarettes Second hand tobacco smoke exposure: No Smoking end date: 06/27/86 Alcohol intake: never Alcohol use details: occasional Substance use: never Substance use type: does not use Do You Feel Safe in your Home?: Yes Lack of Transportation: No Lack of Food: Never True Current Housing: I Have Housing Difficulty Paying Gas/Electric Bills: No Difficulty Paying for Meds: No Currently Unemployed: YES Education: Don't Know Difficulty w/ Childcare or Family Care: No Living arrangements: with family Occupation/Education: retired Gender identity (if verbalized by the patient): Male Sexual Orientation (if Verbalized by the Patient): Straight or Heterosexual Spiritual care concerns: No Comments At the time of my signature, I reviewed and agree with the nursing past medical, surgical, social, and family history. There is no relevant family history pertinent to the patient complaint. Exam Narrative: GENERAL: This is a well-nourished, well-developed adult, in no apparent distress. They are non ill-appearing, nontoxic appearing. HEAD: normocephalic, atraumatic. EYES: Sclera clear/white. Vision is grossly intact. Extraocular movements intact EARS: External ears normal, auditory canals clear and without drainage, TMs normal without perforation. Hearing grossly intact. NOSE: External nose normal with no obvious nasal discharge, nasal turbinates are erythematous, no rhinorrhea. THROAT: Mucous membranes moist, posterior pharynx clear without swelling or redness. Postnasal drip present. Uvula midline NECK: Normal range of motion CARDIOVASCULAR: Regular rate and rhythm. Normal S1 and S2. Midsystolic murmur present. No clicks, gallops, rubs. RESPIRATORY: Clear to auscultation. Breath sounds equal bilaterally. No wheezes, rales, or rhonchi. Respiratory effort is nonlabored. SKIN: warm, Dry, intact with no suspicious lesions or rash, good texture and turgor. NEURO: awake, alert, and oriented to person, place and time. There were no obvious focal neurologic abnormalities. EXTREMITIES: No joint tenderness, effusion, or edema noted. Course Course Emergency Course: Patient is aware of diagnosis, understands and agrees to treatment plan. Anticipatory guidance given. Patient agrees to follow-up as directed and is aware of reasons to seek care at the emergency department. Portions of this record may have been created with voice recognition software Level of Care: Express Care Visit Vital Signs Vital signs: Vital Signs Temperature 96.2 F L 10/15/24 09:19 Pulse Rate 78 10/15/24 09:19 Respiratory Rate 16 10/15/24 09:19 Blood Pressure 117/62 10/15/24 09:19 Pulse Oximetry 99 10/15/24 09:19 Oxygen Delivery Room Air 10/15/24 09:19 Temperature 96.2 F L 10/15/24 09:19 Pulse Rate 78 10/15/24 09:19 Respiratory Rate 16 10/15/24 09:19 Blood Pressure 117/62 10/15/24 09:19 Pulse Oximetry 99 10/15/24 09:19 Oxygen Delivery Room Air 10/15/24 09:19 Reviewed MDM - URI/Sore Throat MDM Narrative Medical decision making narrative: Given patient's length of symptoms will go ahead and treat for bacterial sinusitis. Patient has allergy to penicillin so will treat him with doxycycline. Discussed physical exam findings. Advised supportive measures and signs/symptoms to go to the ER. Pt is appropriate for outpt treatment and f/u. Differential Diagnosis Differential diagnosis: Likely upper respiratory infection, sinusitis and pharyngitis Critical Care Time Critical Care Time Critical Care Time: No Discharge Plan Discharge Clinical Impression: Rhinosinusitis Patient Disposition: Home Condition: Stable Instructions: Antibiotic Form, Rhinosinusitis (ED) Additional Instructions: Take the antibiotics as directed and complete the course even if you start to feel better. You may use a Neti pot saline rinse 3 times a day. Continue to take Tylenol or Motrin for pain. Use a humidifier or vaporizer at night. Drink plenty of water. 8-10 glasses per day. Use flonase 2 times per day for 5 days then as needed You may take [id number] Zyrtec or Claritin for congestion. Avoid Benadryl as it may make you drowsy. Follow up with Primary provider if not getting better. Go to the ER if he develops difficulty breathing, chest pain, or any other concerns. Patient Language: Senegalese Prescriptions: New doxycycline monohydrate 100 mg capsule 100 mg PO BID 7 Days Qty: 14 0RF fluticasone propionate [Flonase Allergy Relief] 50 mcg/actuation spray,suspension 2 spray intranasal DAILY Qty: 16 0RF Rx Instructions: administer into each nostril No Action cetirizine [Zyrtec] 10 mg tablet 10 mg PO DAILY Qty: 90 3RF nadolol 20 mg tablet 20 mg PO DAILY aspirin 81 mg tablet,delayed release (DR/EC) 81 mg PO DAILY dapagliflozin propanediol [Farxiga] 10 mg tablet 10 mg PO DAILY clopidogrel [Plavix] 75 mg tablet 75 mg PO DAILY atorvastatin [Lipitor] 40 mg tablet 40 mg PO DAILY Follow-up/Referrals: Joe Colon MD [Primary Care Provider] - Time of Disposition: 09:36
== END 2024-10-15 09:39 | disposition home or self-care (01) ==
PROVIDERS: PCP Family Medicine
DX: J01.90 Acute sinusitis, unspecified (principal); Z87.891 Personal history of nicotine dependence; I25.10 Atherosclerotic heart disease of native coronary artery without angina pectoris; E78.5 Hyperlipidemia, unspecified; R73.01 Impaired fasting glucose; Z86.16 Personal history of COVID-19; Z95.5 Presence of coronary angioplasty implant and graft; Z96.652 Presence of left artificial knee joint
CPT/HCPCS: 99213; G0463

== ENCOUNTER 2024-12-06 09:56 | Outpatient (CLI) | payer MEDICARE, SELFPAY ==
[2024-12-06 10:32] LABS: Hematocrit 45.3 % (42.0-52.0); Hemoglobin 14.5 g/dL (14.0-18.0); Mean Corpuscular Hemoglobin 31.4 pg (26-34); Mean Corpuscular Volume 98.1 fl (80-100); Platelet Count Result 186 k/mm3 (150-375); Red Blood Count 4.62 M/mm3 (4.6-6.20); Red Cell Distribution Width 14.6 % (11.5-14.5); White Blood Count 6.7 K/mm3 (4.5-10.0)
[2024-12-06 10:34] LABS: Add Urine Microscopic? NO; Appearance Urine Clear (Clear); Bilirubin Urine Negative (Negative); Blood Urine Negative (Negative); Color Urine Yellow (Yellow); Glucose Urine UA 3+ mg/dL (Negative); Ketones Urine Negative (Negative); Leukocyte Esterase Ur Negative LEU/UL (Negative); Nitrate Urine Negative (Negative); Protein Urine Negative (Negative); Specific Grav Ur 1.024 (1.001-1.035); Urobilinogen Urine 0.2 mg/dL (<2.0)
[2024-12-06 10:44] LABS: Alanine Aminotransferase 19 U/L (6-50); Albumin Level 4.3 g/dL (3.5-5.1); Alkaline Phosphatase 67 U/L (38-126); Anion Gap 8 mmol/L (4-12); Aspartate Amino Transferase 29 U/L (17-59); Bilirubin,Total 1.6 mg/dL (0.2-1.3); Blood Urea Nitrogen 30 mg/dL (9-20); Calcium 9.1 mg/dL (8.4-10.2); Carbon Dioxide 26 mmol/L (22-30); Chloride 105 mmol/L (98-107); Cholesterol 136 mg/dL (0-200); Estimated Glomerular Filt Rate > 60; Glucose 105 mg/dL (65-110); HDL Direct 55 mg/dL; Potassium 4.9 mmol/L (3.4-5.0); Sodium 139 mmol/L (137-145); Total Protein 7.8 g/dL (6.3-8.2); Triglycerides 87 mg/dL (<150)
--- OUTSIDE RECORDS SUMMARY | 2024-12-06 10:48 | XMS_ITS | Clinical Summary ---
Author Organization [facility] Address [address] [place] [address] Care Team Providers Care Oven Equipment Repairer Name Role Phone Joe Colon MD Primary Care Provider [phone] Joe Colon MD Unavailable [phone] Source Comments [facility],non-owned Affiliates and Associated Physician Practices is amultiple site organization consisting of ambulatory clinics and hospital sitesin [place], [place], [place] and [place]. This disclosure is being madepursuant to the Care Everywhere program and may not contain all information available regarding this patient. Last updated 18.[facility] Allergies Active Allergy Reactions Criticality Noted Date Comments Penicillins Unknown 04/11/2015 Medications * Be aware that medications may not be up to date on this document. Alwaysverify current medications with the patient. aspirin (ASPIRIN) 325 MG tablet Take 325 mg by mouth once daily Active losartan (COZAAR) 50 MG tablet Take 1 tablet by mouth once daily 90 tablet 4 04/30/2020 Active nadolol (CORGARD) 20 MG tablet Take 1 tablet by mouth once daily 90 tablet 4 04/30/2020 Active simvastatin (ZOCOR) 40 MG tablet Take 1 tablet by mouth at bedtime 90 tablet 4 04/30/2020 Active Active Problems Patient Care Coordination No te Formatting of this note migh t be different from the original. Pantograph Watcher - Uday Arrington M.D. Problem Noted Date Diagnosed Date Atherosclerosis of [place] ronary artery of [place] heart without angina pectoris 09/15/2016 Non morbid obesity due to excess calories 2016 Dietary counseling 10/07/2015 Essential hypertension, benign 04/09/2015 Pure hypercholesterolemia 04/09/2015 Social History Tobacco Use Types Packs/Day Years Used Date Smoking Tobacco: Former Cigarettes Q uit: 06/27/1993 Smokeless Tobacco: Never Comments:tobacco use d/c in approximately 1993, after a 20 pack year history. Alcohol Use Standard Drinks/Week Comments Not Asked 0 (1 standard drink = 0.6 oz pur e alcohol) Sex and Gender Information Value Date Recorded Sex Assigned at Not on file Legal Sex Male 9:41 PM CDT Gender Identity Not on file Sexual Orientation Not on file Last Filed Vital Signs Vital Sign Reading Time Taken Comments Blood Pressure 142/83 04/30/2020 10:01 AM WALL MAN Pulse 60 04/30/2020 10:01 AM WALL MAN Temperature - - Respiratory Rate 12 04/30/2020 10:01 AM WALL MAN Oxygen Saturation - - Inhaled Oxygen Concentration - - Weight 116.6 kg (257 lb) 04/30/2020 10:01 AM WALL MAN Height 180.3 cm (5' 11) 04/30/2020 10:01 AM WALL MAN Body Mass Index 35.84 04/30/2020 10:01 AM WALL MAN Plan of Treatment Health Maintenance Due Date Last Done Comments DTAP/TDAP/TD VACCINES (1 - Tdap) 1960 PNEUMOCOCCAL VACCINE 50+ (1 of 1 - PCV) 1991 ZOSTER VACCINE (1 of 2) 1991 Respiratory Syncytial Virus (RSV) Vaccine Pt: or over 60 yrs (1 - 1-dose 75+ series) 2016 COVID-19 VACCINE ( - 2023-2 5 season) 2024 DEPRESSION SCREENING 06/27/2024 INFLUENZA VACCINE (Season Ended) 2025 HEPATITIS B VACCINE Aged Out No longe r eligible based on patient's age to complete this topic HIB VACCINE Aged Out No longer eligi ble based on patient's age to complete this topic HPV VACCINE Aged Out No longer eligi ble based on patient's age to complete this topic MENINGOCOCCAL (Group B) VACC INE SHARED DECISION-MAKING Aged Out No longer eligibl e based on patient's age to complete this topic MENINGOCOCCAL GROUPS A/C/Y/W VACCINE Aged Out No longer eligible b ased on patient's age to complete this topic Insurance [facility] MEDICARE Care Teams Oven Equipment Repairer Relationship Specialty Start Date End Date Joe Colon MD [address] [place] [address] PCP - General 09/09/22 Joe Colon MD [address] [place] [address] Family Medicine 09/09/22
[2024-12-06 10:55] LABS: LDL Cholesterol Direct 53 mg/dL
[2024-12-06 11:35] LABS: Hemoglobin A1C 5.8 % (<5.7)
== END 2024-12-06 09:57 | disposition home or self-care (01) ==
PROVIDERS: PCP Family Medicine; Visit Provider Family Medicine
DX: R73.01 Impaired fasting glucose (principal); I11.9 Hypertensive heart disease without heart failure; I25.10 Atherosclerotic heart disease of native coronary artery without angina pectoris; E78.5 Hyperlipidemia, unspecified; R53.83 Other fatigue
CPT/HCPCS: 36415; 80053; 80061; 81003; 83036; 84443; 85027

== ENCOUNTER 2025-05-13 10:19 | Outpatient (CLI) | payer MEDICARE, SELFPAY ==
[2025-05-13 11:28] LABS: Alanine Aminotransferase 31 U/L (6-50); Albumin Level 4.6 g/dL (3.5-5.1); Alkaline Phosphatase 80 U/L (38-126); Anion Gap 8 mmol/L (4-12); Aspartate Amino Transferase 44 U/L (17-59); Bilirubin,Total 1.4 mg/dL (0.2-1.3); Blood Urea Nitrogen 29 mg/dL (9-20); Calcium 9.7 mg/dL (8.4-10.2); Carbon Dioxide 29 mmol/L (22-30); Chloride 104 mmol/L (98-107); Estimated Glomerular Filt Rate > 60; Glucose 107 mg/dL (65-110); Potassium 4.9 mmol/L (3.4-5.0); Sodium 141 mmol/L (137-145); Total Protein 8.3 g/dL (6.3-8.2)
[2025-05-13 11:30] LABS: Hemoglobin A1C 6.0 % (<5.7)
--- OUTSIDE RECORDS SUMMARY | 2025-05-13 19:20 | XMS_ITS | Clinical Summary ---
Author Organization [facility] Address [address] [place] [address] Care Team Providers Care Material Stress Tester Name Role Phone Joe Colon MD Primary Care Provider [phone] Joe Colon MD Unavailable [phone] Source Comments [facility],non-owned Affiliates and Associated Physician Practices is amultiple site organization consisting of ambulatory clinics and hospital sitesin [place], [place], [place] and [place]. This disclosure is being madepursuant to the Care Everywhere program and may not contain all information available regarding this patient. Last updated 18.[facility] Allergies Active Allergy Reactions Criticality Noted Date [...] migh t be different from the original. Sexologist - Uday Arrington M.D. Problem Noted Date Diagnosed Date Atherosclerosis of [place] co ronary artery of [place] heart without angina pectoris 09/15/2016 Non morbid obesity due to excess calories 2016 Dietary counseling 10/07/2015 Essential hypertension, benign 04/09/2015 Pure hypercholesterolemia 04/09/2015 Social History Tobacco Use Types Packs/Day Years Used Date Smoking Tobacco: Former Cigarettes 0 Q uit: 06/27/1993 Smokeless Tobacco: Never Comments:tobacco [...] Comments Blood Pressure 142/83 04/30/2020 10:01 AM AIRPORT RAMP AGENT Pulse 60 04/30/2020 10:01 AM AIRPORT RAMP AGENT Temperature - - Respiratory Rate 12 04/30/2020 10:01 AM AIRPORT RAMP AGENT Oxygen Saturation - - Inhaled Oxygen Concentration - - Weight 116.6 kg (257 lb) 04/30/2020 10:01 AM AIRPORT RAMP AGENT Height 180.3 cm (5' 11) 04/30/2020 10:01 AM AIRPORT RAMP AGENT Body Mass Index 35.84 04/30/2020 10:01 AM AIRPORT RAMP AGENT Plan of Treatment Health Maintenance Due Date Last Done Comments DTAP/TDAP/TD VACCINES (1 - Tdap) 1960 PNEUMOCOCCAL VACCINE 50+ (1 of 1 - PCV) 1991 ZOSTER VACCINE (1 of 2) 1991 Respiratory Syncytial Virus (RSV) Vaccine Pt: or over 60 yrs (1 - 1-dose 75+ series) 2016 DEPRESSION SCREENING 06/27/2024 COVID-19 VACCINE (1 - 2023-2 5 season) 2025 INFLUENZA VACCINE (#1) 2025 HEPATITIS B VACCINE Aged Out No [...] age to complete this topic Insurance [facility] MEDICARE Care Teams Material Stress Tester Relationship Specialty Start Date End Date Joe Colon MD [address] [place] [address] PCP - General 09/09/22 Joe Colon MD [address] [place] [address] Family Medicine 09/09/22
== END 2025-05-13 10:20 | disposition home or self-care (01) ==
PROVIDERS: PCP Family Medicine; Visit Provider Family Medicine
DX: R73.01 Impaired fasting glucose (principal); I11.0 Hypertensive heart disease with heart failure
CPT/HCPCS: 36415; 80053; 83036